=== PATIENT | female | born 1985 | race Caucasian/White ===

== ENCOUNTER 2020-03-06 10:34 | Outpatient (CLI) | payer BC, SELFPAY ==
[2020-03-09 08:20] LABS: SARS-CoV-2 RNA Undetected (Undetected); SARS-CoV-2 Specimen Source Nasopharynx
== END 2020-03-06 10:54 ==
PROVIDERS: Visit Provider Family Medicine
DX: Z20.828 Contact with and (suspected) exposure to other viral communicable diseases (principal)
CPT/HCPCS: U0003

== ENCOUNTER 2020-04-10 08:08 | Outpatient (CLI) | payer BC, SELFPAY ==
[2020-04-13 16:11] LABS: Patient Race White; SARS-CoV-2 RNA Undetected (Undetected); SARS-CoV-2 Specimen Source Nasopharynx
== END 2020-04-10 08:28 ==
PROVIDERS: PCP Student in an Organized Health Care Education/Training Program; Visit Provider Student in an Organized Health Care Education/Training Program
DX: J02.9 Acute pharyngitis, unspecified (principal)
CPT/HCPCS: U0003; 87081

== ENCOUNTER 2020-04-15 08:00 | Outpatient (CLI) | payer BC, SELFPAY ==
[2020-04-19 03:45] LABS: Patient Race White; SARS-CoV-2 RNA Undetected (Undetected); SARS-CoV-2 Specimen Source Nasopharynx
== END 2020-04-15 08:20 ==
PROVIDERS: PCP Student in an Organized Health Care Education/Training Program; Visit Provider Family Medicine
DX: Z11.59 Encounter for screening for other viral diseases (principal)
CPT/HCPCS: U0003

== ENCOUNTER 2020-06-02 14:13 | Outpatient (CLI) | payer BC, SELFPAY ==
--- NOTE | 2020-06-02 13:45 | DI.RAD_ITS ---
EXAM: XR KNEE LT 3V AP,LAT,PAU CLINICAL HISTORY: patella pain. TECHNIQUE: 2D digital imaging was performed. COMPARISON: No exams were available for comparison FINDINGS: BONES: No acute fracture is present. No bony destructive lesion is seen. JOINTS: The knee is normally aligned. No joint effusion is seen. There is mild narrowing of the medi al femoral tibial joint space. There is no significant periarticular spurring. SOFT TISSUE: Normal. IMPRESSION: Mild degenerative changes of the medial femoral tibial joint. DATA REPOSITORY: RADIATION DOSE DELIVERED:
== END 2020-06-02 14:33 ==
PROVIDERS: PCP Student in an Organized Health Care Education/Training Program; Visit Provider Student in an Organized Health Care Education/Training Program
DX: M17.12 Unilateral primary osteoarthritis, left knee (principal)
CPT/HCPCS: 73562

== ENCOUNTER 2020-09-17 18:50 | Outpatient (REF) | payer BC, SELFPAY ==
[2020-09-19 18:01] LABS: COVID-19 RT-PCR UVMMC Result Negative (Negative)
== END 2020-09-17 18:51 | disposition home or self-care (01) ==
LOC: LBN 18:50
PROVIDERS: PCP Student in an Organized Health Care Education/Training Program; Visit Provider Nurse Practitioner
DX: Z20.822 Contact with and (suspected) exposure to COVID-19 (principal); R05 Cough; R06.02 Shortness of breath
CPT/HCPCS: U0003

== ENCOUNTER 2020-12-22 16:40 | Outpatient (CLI) | payer BC, SELFPAY ==
[2020-12-22 16:48] LABS: HCT 40.8 % (36.0-46.0); HGB 13.4 g/dL (11.2-15.7); MCH 29.3 pg (27.0-33.0); MCHC 32.8 % (32.0-36.0); MCV 89.3 fL (80-95); Platelet Count 303 10^3/uL (130-400); RBC 4.57 10^6/uL (3.93-5.22); RDW 11.9 % (11.7-14.6); RDW-SD 38.5 fL; WBC 7.37 10^3/uL (4.4-10.8)
[2020-12-22 17:32] LABS: ALT 24 U/L (14-59); AST 15 U/L (15-37); Albumin 3.8 g/dL (3.4-5.0); Alkaline Phosphatase 70 U/L (46-116); Anion Gap 7.4 mmol/L (3-11); BUN 15 mg/dL (7-18); Bilirubin, Total 0.4 mg/dL (0.2-1.0); CO2 29.6 mmol/L (21.0-32.0); CREATININE 0.6 mg/dL (0.55-1.02); Calcium 8.3 mg/dL (8.5-10.1); Chloride 103 mmol/L (98-107); Ferritin 42 ng/mL (8-252); Glucose 93 mg/dL (74-106); Sodium 140 mmol/L (136-145); Vitamin B12 508 pg/mL (193-986)
== END 2020-12-22 16:41 | disposition home or self-care (01) ==
LOC: LBO 12-23 16:41
PROVIDERS: PCP Student in an Organized Health Care Education/Training Program; Visit Provider Nurse Practitioner
DX: R42 Dizziness and giddiness (principal); R06.02 Shortness of breath; R00.0 Tachycardia, unspecified
CPT/HCPCS: 36415; 80053; 85027; 82607; 82728; 84443

== ENCOUNTER 2020-12-24 09:22 | Outpatient (CLI) | payer BC, SELFPAY ==
--- NOTE | 2020-12-24 09:15 | RT.EKG_ITS ---
APPROVED REPORT Exam: Resting ECG Reason for Exam: tachycardia Patient Location: O HR:75 bpm ECG Measurements Heart Rate 75 AXIS SD 164 P 63 QRSd 87 QRS 23 QT 386 T 39 QTc 430 Conclusion Sinus rhythm...normal P axis, V-rate 60- 99 Normal Electrocardiogram
== END 2020-12-24 09:23 | disposition home or self-care (01) ==
LOC: DI.KIM 09:23
PROVIDERS: PCP Student in an Organized Health Care Education/Training Program; Visit Provider Student in an Organized Health Care Education/Training Program
DX: R06.02 Shortness of breath (principal); R42 Dizziness and giddiness; R00.0 Tachycardia, unspecified
CPT/HCPCS: 93010

== ENCOUNTER 2021-03-01 03:15 | Outpatient (CLI) | payer BC, SELFPAY ==
--- NOTE | 2021-03-16 15:15 | ZIOP_ITS ---
Date of service: 03/16/21 Time of Service: 15:15 14 Day Flooring Sales Manager Referring Provider:: Tory Liu Indications:: Tachycardia Note: This is a 14-day media monitor. Predominant rhythm was sinus. Average heart rate was 76, minimum 144, maximum 179 There were very rare atrial and ventricular ectopic beats. There was one ventricular triplet. There was no supraventricular tachycardia There was no atrial fibrillation, no high-grade AV block, no pauses greater than 3 seconds Multiple patient symptoms were reported, the majority of which corresponded to sinus rhythm and sinus tachycardia without additional concerning dysrhythmia
--- NOTE | 2021-03-29 10:42 | W.ZIOMONITOR ---
Date of service: 03/29/21 Time of Service: 10:43 14 Day Workers Compensation Legal Secretary Referring Provider:: Tory Liu Indications:: Tachycardia Note: This is a corrected report on a 14-day school lunch monitor Predominant rhythm was sinus. Average heart rate was 76. Minimum was 44, maximum 179 There were very rare atrial and ventricular ectopic beats. There was one ventricular triplet. There was no supraventricular tachycardia There was no atrial fibrillation, no high-grade AV block, no pauses greater than 3 seconds Multiple patient symptoms were reported. The majority of these corresponded to sinus rhythm, occasionally sinus tachycardia but no corresponding dysrhythmia
== END 2021-03-01 03:16 | disposition home or self-care (01) ==
LOC: RT 03:15
PROVIDERS: PCP Student in an Organized Health Care Education/Training Program; Visit Provider Student in an Organized Health Care Education/Training Program
DX: R00.0 Tachycardia, unspecified (principal); R06.02 Shortness of breath; R42 Dizziness and giddiness; R00.2 Palpitations
CPT/HCPCS: 93246

== ENCOUNTER 2021-04-08 04:09 | Outpatient (CLI) | payer BC, SELFPAY ==
[2021-04-08] MEDS: Albuterol HFA 18 GM 200 PUFF INH IH (16:42)
[2021-04-08] MEDS: Inhaler, Assist Device 1 EACH MC (16:42)
--- NOTE | 2021-04-13 15:39 | W.PFT ---
Date of service: 04/08/21 Time of Service: 15:01 Pulmonary Function Test Result Requesting Provider Tory Liu Indications: Reactive Airways Disease Interpretation Spirometry: There is no airflow limitation. There is no significant bronchodilator response. Her volume flow loops appear normal. Lung Volumes: Lung volumes are normal. Diffusion Capacity: The diffusion is normal. Airway Pressure: Airways resistance is normal. Impression Normal pulmonary function test. Clinical Correlation therefore is recommended.
--- NOTE | 2021-05-21 06:31 | W.PFT ---
Date of service: 05/04/21 Time of Service: 15:02 Pulmonary Function Test Result Requesting Provider Lv Indications: Reactive airways disease Interpretation Spirometry: There is no airflow limitation. There is a significant decline in FEV1 with administration of methacholine (24%) Impression Positive methacholine test with normal baseline spirometry Note: Compared to 04/08/21, the FEV1 and FVC are essentially unchanged Clinical Correlation therefore is recommended.
== END 2021-04-08 04:10 | disposition home or self-care (01) ==
LOC: RT 04:10
PROVIDERS: PCP Student in an Organized Health Care Education/Training Program; Visit Provider Student in an Organized Health Care Education/Training Program
DX: J45.909 Unspecified asthma, uncomplicated (principal)
CPT/HCPCS: 94060; 94726; 94729

== ENCOUNTER 2021-05-04 01:30 | Outpatient (CLI) | payer BC, SELFPAY ==
[2021-05-04] MEDS: Methacholine 100 MG VIAL IH (17:20)
[2021-05-04] MEDS: Albuterol HFA 18 GM 200 PUFF INH IH (17:20)
[2021-05-04] MEDS: Inhaler, Assist Device 1 EACH MC (17:21)
== END 2021-05-04 01:31 | disposition home or self-care (01) ==
LOC: RT 01:30
PROVIDERS: PCP Student in an Organized Health Care Education/Training Program; Visit Provider Student in an Organized Health Care Education/Training Program
DX: J45.909 Unspecified asthma, uncomplicated (principal); R94.2 Abnormal results of pulmonary function studies
CPT/HCPCS: 94060; 95070; J7674

== ENCOUNTER 2021-05-06 01:15 | Outpatient (CLI) | payer BC, SELFPAY ==
--- NOTE | 2021-05-06 09:15 | DI.RAD_ITS ---
Exam(s) XR CHEST 2V PA LATERAL EXAM: XR CHEST 2V PA LATERAL CLINICAL HISTORY: cough, dyspnea,J45.909, REACTIVE AIRWAY DISEASE. TECHNIQUE: 2D digital imaging was performed. COMPARISON: No exams were available for comparison FINDINGS: Heart size is normal. The mediastinum is not widened. Lungs are clear. No infiltrates nor pleural effusions. IMPRESSION: No acute pulmonary findings. DATA REPOSITORY: RADIATION DOSE DELIVERED:
== END 2021-05-06 01:35 ==
PROVIDERS: PCP Student in an Organized Health Care Education/Training Program; Visit Provider Student in an Organized Health Care Education/Training Program
DX: J45.909 Unspecified asthma, uncomplicated (principal); R05.8 Other specified cough; R06.00 Dyspnea, unspecified
CPT/HCPCS: 71046

== ENCOUNTER 2021-05-20 09:29 | Outpatient (CLI) | payer BC, SELFPAY | END 2021-05-20 09:30 | disposition home or self-care (01) | LOC: DI.CARD 09:30 | PROVIDERS: PCP Student in an Organized Health Care Education/Training Program; Visit Provider Internal Medicine Cardiovascular Disease | DX: R69 Illness, unspecified (principal) ==

== ENCOUNTER 2021-05-21 03:51 | Outpatient (CLI) | payer BC, SELFPAY ==
[2021-05-24 09:24] LABS: Vitamin D 25 Total 26.6 ng/mL (30-100)
== END 2021-05-21 03:52 | disposition home or self-care (01) ==
LOC: LBO 03:51
PROVIDERS: PCP Student in an Organized Health Care Education/Training Program; Visit Provider Student in an Organized Health Care Education/Training Program
DX: E83.51 Hypocalcemia (principal); R00.0 Tachycardia, unspecified
CPT/HCPCS: 36415; 82306

== ENCOUNTER 2021-06-25 08:40 | Outpatient (CLI) | payer BC, SELFPAY ==
--- NOTE | 2021-06-25 08:30 | RT.EKG_ITS ---
APPROVED REPORT Exam: Resting ECG Reason for Exam: tachycardia Patient Location: O HR:60 bpm ECG Measurements Heart Rate 60 AXIS [place] 134 P 34 QRSd 94 QRS 4 QT 409 T 22 QTc 409 Conclusion Sinus rhythm...normal P axis, V-rate 50- 99 Low voltage, precordial leads...precordial leads <1.0mV Otherwise normal
== END 2021-06-25 08:41 | disposition home or self-care (01) ==
LOC: DI.CARD 08:41
PROVIDERS: PCP Student in an Organized Health Care Education/Training Program; Visit Provider Internal Medicine Cardiovascular Disease
DX: R00.0 Tachycardia, unspecified (principal)
CPT/HCPCS: 93010

== ENCOUNTER 2021-07-21 01:39 | Outpatient (CLI) | payer BC, SELFPAY ==
[2021-07-21 12:58] VITALS: BP 130/77; PULSE 76; RESP 16; TEMP 36.4; O2SAT 97
[2021-07-21] MEDS: Normal Saline 250 ML 30 ML IV (13:01)
[2021-07-21] MEDS: Normal Saline Flush 10 ML SYR IVP (13:05)
[2021-07-21 13:10] VITALS: BP 111/73; PULSE 70; RESP 18; TEMP 36.6; O2SAT 97
[2021-07-21 14:16] VITALS: BP 125/80; PULSE 68; RESP 16; TEMP 36.8; O2SAT 96
== END 2021-07-21 01:40 | disposition home or self-care (01) ==
LOC: INF 01:39
PROVIDERS: PCP Student in an Organized Health Care Education/Training Program; Visit Provider Family Medicine
DX: U07.1 COVID-19 (principal); R53.81 Other malaise; R09.02 Hypoxemia; R06.82 Tachypnea, not elsewhere classified; R41.89 Other symptoms and signs involving cognitive functions and awareness; R23.0 Cyanosis
CPT/HCPCS: 96365; Q0047

== ENCOUNTER → 2021-11-03 02:22 | Outpatient (CLI) | payer BC, SELFPAY ==
--- NOTE | 2021-11-03 14:56 | ST.MBS_ITS ---
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 PMHx significant for chronic cough, history of reactive airways disease, unspecified post-COVID19 condition, POTS, tachycardia, near syncope / vasovagal syncope, SOB, lightheadedness, post concussion syndrome, insomnia, anxiety, depression, and reported JAYNE, pna, bronchitis ~10 years ago. Recently diagnosed with asthma by Pulmonology approx 3 months ago, and changed her to Advair HFA (both steroid and LABA is a different formulation); Methacholine test also showed inspiratory loop blunting. Reports tilt table testing scheduled for end september (tentatively, still unconfirmed). Patient also has environmental pollutant(s) history, ie spent 2 years in a polluted city in [place] (about 9 years ago) Imaging / Testing: Chest XRay 04/2021 IMPRESSION: No acute pulmonary findings. Pulmonary Function Tests: 04/2021, 03/2021 Diagnoses Asthma? J45.909 Vocal cord dysfunction? J38.3 SUBJECTIVE: Patient reports feeling like foods get stuck and kind of block things; this morning was difficult swallowing pills. It took a few times to get it to go down, or even get started. Mostly this is with pills, but sometimes things catch in the back. IMPRESSIONS: Swallow safety is preserved; swallow efficiency is preserved. Overall oropharyngeal swallow function is WFL; suspect dysphagia report due to possible deficits with swallow-breath coordination (not seen on study this date) and possible muscle tension dysphagia (MTDg). Patient appears to be at low risk for potential aspiration PNA and/or pulmonary compromise and low for malnutrition, low for dehydration. Diet modification is not indicated; non-oral nutrition is not indicated. Swallow prognosis is excellent given age (+), outcomes from VFSE/MBSS this date (+) and pending patient/caregiver training in risk management as outlined, including use of trialed compensatory strategies. Patient appears to be a good candidate for continued CHIPS SCREEN TENDER treatment to address swallow-breath coordination, possible muscle tension dysphagia (MTDg). Specialist referrals: N/A Ancillary tests: N/A Diet texture recommendation: IDDSI Level [x] 7-Regular Solids [x] 0-Thin Liquids Please see further details at [email or web address] Diet texture modification is per patient's preference; please adjust diet textures at patient's discretion & collaboration with care team. Risk Management: [x] Behavioral reflux precautions, including upright position during + 90 mins after meals. [x] Alternate solids/liquids as able [x] breath and muscle tension awareness during po intake Control risk factors for aspiration pneumonia via (a) thorough oral hygiene & (b) maintaining physical mobility as tolerated PLAN: Therapy: Recommend subsequent outpatient session with CHIPS SCREEN TENDER to review results of today's exam and develop treatment plan as appropriate. Goal: TBD pending patient/caregiver interview Follow-up exam: N/A Thank you for allowing me to take part in this patient's care. Please feel free to contact me with any questions/concerns. Darcy Jackman MA CCC-CHIPS SCREEN TENDER Speech Language Pathologist [phone] OBJECTIVE: Videofluoroscopic Swallow Evaluation (VFSE/MBSS) was conducted in the lateral and [id number] projections by Speech-Language Pathologist, in collaboration with Radiologist, to evaluate oropharyngeal swallow function. Anatomic view under fluoroscopy: [x] WFL PO Barium Contrast Trials Oral barium water-soluble contrast was administered as follows: IDDSI Level 0 Varibar thin liquid (40% w/v) IDDSI Level 2 Varibar nectar thick/mildly thick liquid (40% w/v) IDDSI Level 3 Varibar thin honey/liquidised/moderately-thick (40% w/v) IDDSI Level 4 Varibar pudding/pureed/extremely thick (40% w/v) IDDSI Level 7 Regular Solid: 1/2 carlee cracker coated in 3 mL Varibar pudding; 13 mm barium tablet PHYSIOLOGIC FINDINGS (1) Oral Impairment 1 Lip Closure [x] 0-No labial escape 2 Tongue Control [x] 0- Cohesive bolus between tongue to palatal seal 3 Bolus Preparation/Mastication [x] 0- Timely and efficient chewing/mashing 4 Bolus Transport/Lingual Motion [x] 0- Brisk tongue motion 5 Oral residue [x] 0- Complete oral clearance 6 Initiation of pharyngeal swallow [x] 1- Bolus head in valleculae Pharyngeal Impairment 7 Velar Elevation [x] 0- No bolus between soft palate and pharyngeal wall 8 Laryngeal Elevation [x] 0- Complete superior movement of thyroid cartilage with complete approximation of arytenoids to epiglottic petiole 9 Anterior Hyoid Excursion [x] 0- Complete anterior movement 10 Epiglottic Movement [x] 0- Complete inversion 11 Laryngeal Vestibule Closure [x] 0- Complete; no air/contrast in laryngeal vestibule Penetration [x] not observed Aspiration [x] not observed PAS / Overall 8-Point Penetration-Aspiration Scale (2) [x] 1 - No material enters the airway Clinical Indicator(s) of Prandial/Postprandial Aspiration [x] N/A 12 Pharyngeal Stripping Wave [x] 0- Present; complete 13 Pharyngeal Contraction [x] 0- Complete 14 PES/UES Opening [x] 0- Complete distension and complete duration; no obstruction of flow 15 Tongue Base Retraction [x] 0- No contrast between tongue base and posterior pharyngeal wall] 16 Pharyngeal residue [x] 0-Complete pharyngeal clearance Location [facility] Pharyngeal Residue Severity Rating Scale(3) [x] Valleculae I None 0% No residue II Trace 1-5% Trace coating III Mild 5-25% Epiglottic ligament visible IV Moderate 25-50% Epiglottic ligament covered V Severe >50% Filled to epiglottic rim Esophageal Impairment 17 Esophageal Clearance in Upright Position [x] 0-Complete clearance; esophageal coating Notes This study was performed for interpretation only of the oropharyngeal and pharyngoesophageal domains of swallowing, and is not intended to diagnose any other radiologic abnormalities or substitute for a formal esophagram study. KENYETTA: (4) Severity [x] LEVEL 6 - Full PO: normal diet - Within functional limits Trialed Compensatory Strategies & Outcome: Maneuvers Successful/Unsuccessful (+/-) Postures Successful/Unsuccessful (+/-) [] 3 second Preparatory Set [] Chin Tuck Posture [] Cough [] Posterior Head tilt Reflexive Cued [] Throat Clear [] Head Tilt to Reflexive Left Cued Right [] Saliva swallow [] Head Turn/Rotation to [] Supraglottic Swallow Left [] Super-supraglottic Swallow Right Bolus Modifications Successful/Unsuccessful (+/-) [] Delivery/Alternating Consistencies Follow with Liquid Wash Follow with Solid Bolus [] Delivery/Via Straw [] Reduced Volume [] Reduced Rate of Intake [] Increased Viscosity [] Other: Coding CPT Codes MOTION FLUOROSCOPY/SWALLOW - [id number] ([id number]) 1: Jean Carlos Rodriguez al. ?MBS measurement tool for swallow impairment--MBSImp: establishing a standard.? Dysphagia vol. 23,4 (2008): 392-405. doi:10.1007/n65247-425-5636-7 2: (Xenia et al, 1996) 3: (Ronny et al, 2015) 4: The Dysphagia Outcome and Severity Scale is a 7-point scale developed to systematically rate the functional severity of dysphagia based on objective assessment and make recommendations for diet level, independence level, and type of nutrition.
[2021-11-03] MEDS: Barium Sulfate 40% W/V 1500 CPS 250 ML BTL 70 ML PO ×2 (14:58→15:00)
[2021-11-03] MEDS: Barium Sulfate Oral Paste 40% W/V 230 ML TUBE 13 ML PO (14:59)
[2021-11-03] MEDS: Barium Sulfate 81% w/w for Oral Suspension 148 GM BTL 70 GM PO (14:59)
[2021-11-03] MEDS: Barium Sulfate 40% W/V 240 ML BTL 70 ML PO (15:01)
--- NOTE | 2021-11-03 15:30 | DI.RAD_ITS ---
Exam(s) RF MODIFIED SPEECH BA SWALLOW EXAM: RF MODIFIED SPEECH BA SWALLOW CLINICAL HISTORY: dysphagia,r13.10 TECHNIQUE: 2D and realtime digital imaging was performed. CONTRAST MATERIAL: Multiple consistencies of barium. COMPARISON: No exams were available for comparison FINDINGS: There is no evidence of aspiration or laryngeal penetration with any consistency. No delay in oral t ransit. There is no significant pooling or residue in the vallecular or piriform sinuses. Barium ta blet passed into the stomach without delay. Esophageal peristalsis is normal. IMPRESSION: Normal modified barium swallow. Please see detailed speech pathology report. Fluoro time 1 minutes 50 seconds RADIATION DOSE DELIVERED: li Avilez=11.5 mGy
[2021-11-03] MEDS: Barium Sulfate 700 MG TAB PO (15:35)
== END ==
PROVIDERS: PCP Student in an Organized Health Care Education/Training Program; Visit Provider Speech-Language Pathologist
DX: R13.10 Dysphagia, unspecified (principal)
CPT/HCPCS: 92526; 92611; 74221

== ENCOUNTER → 2021-11-30 01:56 | Outpatient (CLI) | payer BC, SELFPAY ==
--- NOTE | 2021-11-30 07:33 | DI.US_ITS ---
APPROVED REPORT EXAM: Comprehensive 2D, Doppler, and color-flow Echocardiogram Patient Location: Out-Patient E Commerce Manager: Ida Lopez RDCS (AE) Indications: Lightheaded, Palpitations Other Information Study Quality: Adequate Conclusion Normal left ventricular wall thickness and chamber size. Estimated ejection fraction is 55 to 60%. Wall motion is normal Normal right ventricular size and systolic function Both atria are normal in size There is no structural or hemodynamically significant valvular disease Normal estimated right ventricular systolic pressure, 24 mmHg Wall motion Left Ventricle The left ventricle is normal size. The left ventricular systolic function is normal. The left ventric ular ejection fraction is within the normal range. There is normal left ventricular wall thickness. T here is normal LV segmental wall motion. There is no ventricular septal defect visualized. LVEF is 58 %. Right Ventricle The right ventricle is normal size. The right ventricular systolic function is normal. The RVSP is 22 .4 mmHg. Atria The left atrium size is normal. The right atrium size is normal. The interatrial septum is intact wit h no evidence for an atrial septal defect. Aortic Valve The aortic valve is normal in structure. Aortic valve is trileaflet. There is no aortic valvular sten osis. No aortic regurgitation is present. Mitral Valve The mitral valve is normal in structure. No evidence of mitral valve stenosis. Trace to mild mitral r egurgitation. Tricuspid Valve The tricuspid valve is normal in structure. There is no tricuspid valve stenosis. Trace tricuspid reg urgitation. Pulmonic Valve The pulmonary valve is normal in structure. There is no pulmonic valvular stenosis. There is no pulmo ramona valvular regurgitation. Great Vessels The aortic root is normal in size. The ascending aorta is normal in size. Aortic arch is normal in ca liber. IVC is normal in size and collapses >50% with inspiration. Pericardium There is no pericardial effusion. 2D Dimensions IVSD d PLAX 0.61 cm F: 0.6-1.0 LV Vol A2C d MOD 103.9 mL LVPW d PLAX 0.65 cm F: 0.6 - 1.0 LV Vol A4C d MOD 135.8 mL LVID d PLAX 5.16 cm F: 3.8 - 5.2 LA vol/ BSA A2C s A-L 26.1 mL/m2 LVDs 3.60 cm F: 2.2 - 3.5 LA vol/ BSA A4C s A-L 22.1 mL/m2 Ao Root d 2.88 cm F: 2.7 - 3.3 LA Vol/ BSA Biplane s A-L 24.2 mL/m2 RA Area A4C 14.89 cm2 LA Area A4C s MOD 18.98 cm2 RA Vol/ BSA A4C s A-L 16.6 mL/m2 LA Area A2C s MOD 20.51 cm2 Ao Asc Diam d 3.07 cm F: 2.3 - 3.1 LV EF A4C MOD 57.7 % LV EF Teichholz 57.1 % LV EF A2C MOD 58.2 % LVEF (Mustafa's) 57.21 % F: 54 - 74 LV EF Biplane MOD 57.2 % LV Volume 85.82 mL F: 46 - 106 SV 69.12 mL LV Volume Index 36.21 mL/m2 F: 29 - 61 SV Index 29.08 mL/m2 LV Vol Biplane MOD 120.8 mL FS 30.15 % M-Mode TAPSE 2.75 cm (M/F) >1.7 LV Diastology MV E' medial 0.144 (>0.07 m/s) E/A Ratio 1.9 LV E/e MED 6.55 (<14) MV E Vmax 0.95 (0.4-1.3 m/s) MV E' lateral 0.127 (>0.1 m/s) MV A Vmax 0.50 (0.4-1.3 m/s) LV E/e LAT 7.45 (<14) MV E/A Ratio 1.78 MV E/E' medial 6.58 MV E/E' lateral 7.46 Aortic Valve LVOT Area 3.77 cm2 AoV Area Vmax 3.10 cm2 LVOT Vmax 1.12 m/s AoV Area/ BSA (Vmax) 1.31 cm2/m2 LVOT Mean Nasir. 0.81 m/s JESSE Mean Nasir. 3.16 cm2 LVOT Peak Grad 5.0 mmHg JESSE Mean Nasir. Index 1.33 cm2/m2 LVOT Mean Grad 2.9 mmHg LVOT VTI 0.257 m LVOT Diam s 2.15 cm AoV Vmax 1.36 m/s Velocity Ratio 0.82 AoV Mean Nasir. 0.96 m/s AoV Peak Grad 7.4 mmHg LVOT SV 97.09 mL AoV Mean Grad 4.1 mmHg AoV VTI 0.331 m AoV Area VTI 2.93 cm2 AoV Area/ BSA (VTI) 1.23 cm/m2 Mitral Valve MV DT 354 (160-240 msec) MV PHT 103 msec MV Area PHT 2.14 cm2 MV VTI 0.400 m MV Area VTI 2.42 (4.0-6.0 cm2) Pulmonary Valve PV Vmax 1.04 (0.5-1.5 m/s) RVOT Peak Gr. 2.46 mmHg PV Peak Grad 4.3 mmHg RVOT Mean Gr. 1.15 mmHg PV Mean Grad 2.2 mmHg RVOT VTI 0.183 m PV VTI 0.248 m RVOT Vmax 0.78 m/s Tricuspid Valve TR Peak Grad 19.3 mmHg TR Vmax 2.20 m/s RA Pressure 3.00 mmHg RVSP (TR) 22.4 mmHg
== END ==
PROVIDERS: PCP Student in an Organized Health Care Education/Training Program; Visit Provider Nurse Practitioner Acute Care
DX: R42 Dizziness and giddiness (principal); R00.2 Palpitations
CPT/HCPCS: 93306

== ENCOUNTER 2022-05-06 09:38 | Day surgery (SDC) | payer BC, SELFPAY ==
--- NOTE | 2022-05-06 05:49 | W.PM.HP.N ---
Date of service: 05/06/22 Time of Service: 11:39 Assessment and Plan Assessment and plan (1) Reflux involving intestinal tract: Status: Acute Assessment and plan: diagnostic EGD today History of Present Illness History of Present Illness Chief Complaint: dyspepsia Narrative: She is 36 years old and has been experiencing symptoms for several years.? Mostly, she has a sour brash taste and discomfort through her mediastinum up into her lower neck that seems to have some temporal relationship with her meals, especially if she is in the recumbent position after dining.? She has been treated with omeprazole and has noticed some improvement of her symptoms, but she has never been pain-free.? Furthermore, if she holds that medication (or misses any doses) she certainly feels an exacerbation of her symptoms.? She is also recently had some difficulty with vocal cord dysfunction.? She is undergone a barium swallow that shows no evidence of aspiration, but she does complain of some hoarseness, congestion, and occasional sinusitis symptoms that seem to be worse in the morning time.? In that regards, she has some concern that gastroesophageal reflux during her sleep is really the cause of the symptoms. PFSH All Active Problems Depression (Chronic) Anxiety (Chronic) Insomnia (Acute) Motion sickness (Acute) Exposure to TB (Acute) Post concussion syndrome (Acute) Loss of peripheral visual field (Acute) Recurrent dislocation of patella (Acute) Chondromalacia of left patellofemoral joint (Acute) SOB (shortness of breath) on exertion (Acute) Increased pulse rate (Acute) Near syncope (Acute) Tachycardia (Acute) Hypovitaminosis D (Acute) Asthma (Chronic) Per Pulm 10/2021 (Dr. Nicole). Singulair started. Vocal cord dysfunction (Acute) Per Pulm, 10/2021. Sp/Swallow [ ] Post covid-19 condition, unspecified (Acute) Hearing difficulty (Acute) Dysphagia (Acute) JAYNE (obstructive sleep apnea) (Chronic) CPAP, needing new settings and mouth-piece. Reflux involving intestinal tract (Acute) Regurgitation of food (Acute) Diaphoresis (Chronic) Is this associated with POTS .. POTS (postural orthostatic tachycardia syndrome) (Acute) Initially discussed, 04/2021 .. with goal of testing/specialist Dx for possible Tx. Vasovagal syncopes (Acute) per [facility] EP Cardiology unit, with POTS testing in process.. 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, [employer] Sexually active: No Do you think of yourself as: Decline to Provide Current gender identity: female Do you feel safe at home: Yes Do you feel safe in your relationship?: Yes Meds Allergies and Home Medications Allergies Allergy/AdvReac Type Severity Reaction Status Date / Time cefaclor [From Counts [facility]] Allergy Severe Hives Verified 05/06/22 09:53 Home Medications Medication Instructions Recorded Confirmed Type multivitamin 1 tab PO DAILY 09/17/20 05/06/22 History cholecalciferol (vitamin D3) 25 25 mcg PO DAILY #90 caps 05/25/21 05/06/22 Rx mcg (1,000 unit) capsule budesonide-formoterol HFA 160 2 puff inhalation BID #10.2 grams 06/27/21 05/06/22 Rx mcg-4.5 mcg/actuation aerosol inhaler (Symbicort) escitalopram oxalate 20 mg tablet 40 mg PO .COMPLEX #180 tabs 07/27/21 05/06/22 Rx propranolol 20 mg tablet 20 mg PO BID PRN tachycardia or 07/27/21 05/06/22 Rx anxiety episode #60 tabs montelukast 10 mg tablet 10 mg PO DAILY #30 tabs 10/20/21 05/06/22 Rx (Singulair) fluticasone propionate 50 2 spray intranasal DAILY 12/14/21 05/06/22 History mcg/actuation nasal spray,suspension levalbuterol tartrate 45 2 inh inhalation Q6H PRN 05/06/22 05/06/22 History mcg/actuation aerosol inhaler (Xopenex HFA) omeprazole 20 mg capsule,delayed 20 mg PO DAILY 05/06/22 05/06/22 History release Exam Const General: cooperative, healthy appearing and comfortable Orientation: awake and oriented x3 Eyes General: appearance normal, both eyes and all related structures Conjunctivae: conjunctivae normal Sclera: sclerae normal Resp Effort & Inspection: normal respiratory effort and able to speak in complete sentences Auscultation: clear to auscultation bilaterally Cardio Jugular venous pressure: no JVD Rate: regular rate Rhythm: regular rhythm Heart Sounds: S1 normal and S2 normal GI Inspection: non-distended Palpation: soft, no guarding, no hernias and nontender Auscultation: normal bowel sounds Skin General skin exam: normal turgor Neuro General: patient alert, patient awake and patient oriented x3 Cognition: normal cognition Extrem Right lower extremity: no edema Left lower extremity: no edema
--- NOTE | 2022-05-06 05:50 | W.PM.DSUDISC ---
Date of service: 05/06/22 Time of Service: 12:43 Discharge Plan Disposition Patient Disposition: HOME Condition: Good Discharge Details Reason For Visit: EGD Attending Provider: Andrea Delgadillo Primary Care Provider: Tory Liu Home Meds and New Rx's Prescriptions: Continued multivitamin Tablet 1 tab PO DAILY propranolol 20 mg tablet 20 mg PO BID PRN (Reason: tachycardia or anxiety episode) Qty: 60 2RF Rx Instructions: Continue @ 20mg 2/day .. escitalopram oxalate 20 mg tablet 40 mg PO .COMPLEX MDD 40 Qty: 180 3RF Rx Instructions: 40mg montelukast [Singulair] 10 mg tablet 10 mg PO DAILY Qty: 30 6RF fluticasone propionate 50 mcg/actuation spray,suspension 2 spray intranasal DAILY Rx Instructions: administer into each nostril cholecalciferol (vitamin D3) 25 mcg (1,000 unit) capsule 25 mcg PO DAILY Qty: 90 1RF Rx Instructions: Continue daily after 8 weeks of high-dose Rx. budesonide-formoterol [Symbicort] 160-4.5 mcg/actuation HFA aerosol inhaler 2 puff inhalation BID Qty: 10.2 8RF No Action omeprazole 20 mg capsule,delayed release(DR/EC) 20 mg PO DAILY Rx Instructions: Trial, start with daily use. levalbuterol tartrate [Xopenex HFA] 45 mcg/actuation HFA aerosol inhaler 2 inh inhalation Q6H PRN Rx Instructions: Trial to help decrease tachycardia Discharge Instructions Instructions: Esophagitis (DC) Additional Instructions: 1. If tolerated, consume a soft, low fiber diet for 1-2 days. [address] Do not drive, drink alcohol, operate machinery, make critical decisions, or do activities that require coordination or balance for 24 hours. 3. You may experience a sore throat for 24 to 48 hours. You may use throat lozenges or gargle with warm salt water to relieve the discomfort. 4. Because air was put into your stomach during the procedure, you may experience some belching. 5. Go directly to the emergency room if you notice any of the following: Develop chills (warm to touch), or if you have a thermometer and your temperature is above 101 Difficulty breathing or difficultly swallowing Persistent vomiting Severe abdominal pain, other than gas cramps Severe chest pain Black, tarry stools Any bleeding ? exceeding one tablespoon 6. Call your physician if the site where your intravenous was started becomes red, swollen, painful, and warm to touch. 7. Your physician has reviewed your pre-procedure medications. Please continue to take those medications as previously ordered. You will be given specific information/education regarding any changes to your medications before leaving. Activity:: Activity as Tolerated Diet:: As Tolerated Discharge Orders Discharge Orders: Discharge Order (Routine); Ordered 05/06/22 Ordered By: Andrea Delgadillo DS: Diagnosis Discharge Diagnosis (1) Reflux involving intestinal tract: Status: Acute Asessment and Plan: Continue with omeprazole. I will contact you with biopsy results
--- NOTE | 2022-05-06 05:51 | W.PM.ENDDOP ---
Date of service: 05/06/22 Time of Service: 12:45 Endoscopy Report DATE OF PROCEDURE: 05/06/22 PRE-OP DIAGNOSIS: reflux POST-OP DIAGNOSIS: same PROCEDURE: EGD SURGEON: Andrea Delgadillo ANESTHESIA TYPE: General:No Airway ESTIMATED BLOOD LOSS: 20 PATHOLOGY: other (Gastric antrum x2, gastric body x2) COMPLICATIONS: None DISPOSITION: same day INDICATIONS: Evelyne is a 36-year-old woman with chronic gastroesophageal reflux disease. She has had some mild improvement in her symptoms with the addition of omeprazole. She continues to have some cough, occasional shortness of breath, and some vocal cord dysfunction that are thought to be secondary to her reflux esophagitis. PROCEDURE START TIME: 12:30 PROCEDURE END TIME: 12:35 FINDINGS: Very mild reflux esophagitis PROCEDURE DESCRIPTION: After the initiation of monitored anesthetic care, and with the assistance of a bite block, I advanced a standard gastroscope through the mouth past the hypopharynx and into the esophagus.? Under the direct vision of the scope, I advanced down the esophagus into the stomach.? Once I entered the stomach, I performed a brief inspection, followed by retroflexion towards the gastric cardia.? This appeared normal.? After that, I gently advanced the scope around the incisura angularis and examined the pylorus.? This also appeared normal.? Next, I advanced the scope through the pylorus into the duodenum.? The mucosa was pink and healthy appearing.? There were no abnormalities.? I was able to visualize bile draining into the duodenum through the ampulla Vater. ?Next, I began retracting the endoscope.? I pulled the scope back into the gastric antrum, and perform some random biopsies. Next, I inspected the gastric body. This also appeared normal, but I did do some random biopsies.? I then gently desufflated some of the stomach, and withdrew the endoscope into the distal esophagus. The Z-line was normal-appearing at the gastroesophageal junction near 40 cm from the incisors. There was very mild inflammation along the gastric border, but the distal esophagus largely appeared normal. I did not see any signs of Monsalve's esophagus. ?Finally, I withdrew the scope along the length of the esophagus taking great care to examine the entirety of the mucosa.? I did not appreciate any abnormalities. I doubt that reflux esophagitis is contributing much to her vocal cord dysfunction.
[2022-05-06 10:04] VITALS: BP 123/80; PULSE 66; RESP 17; TEMP 36.6; O2SAT 96
[2022-05-06] MEDS: Lactated Ringers 1,000 ML 80 ML IV (10:25)
--- NOTE | 2022-05-06 12:07 | W.ANESPRE ---
General Info Date of Service Date Performed: 05/06/22 Height: 5 ft 11 in Weight: 123.1 kg Body Mass Index (BMI): 37.8 Surgical Procedure: Operation Date: 05/06/22 10:05 Proposed Procedure Side Surgeon p Gastroscopy Andrea Delgadillo MD Meds Allergies and Home Medications Allergies Allergy/AdvReac Type Severity Reaction Status Date / Time cefaclor [From [facility]] Allergy Severe Hives Verified 05/06/22 09:53 Home Medication Medication Instructions Recorded multivitamin 1 tab PO DAILY 09/17/20 cholecalciferol (vitamin D3) 25 25 mcg PO DAILY #90 caps 05/25/21 mcg (1,000 unit) capsule budesonide-formoterol HFA 160 2 puff inhalation BID #10.2 grams 06/27/21 mcg-4.5 mcg/actuation aerosol inhaler (Symbicort) escitalopram oxalate 20 mg tablet 40 mg PO .COMPLEX #180 tabs 07/27/21 propranolol 20 mg tablet 20 mg PO BID PRN tachycardia or 07/27/21 anxiety episode #60 tabs montelukast 10 mg tablet 10 mg PO DAILY #30 tabs 10/20/21 (Singulair) fluticasone propionate 50 2 spray intranasal DAILY 12/14/21 mcg/actuation nasal spray,suspension levalbuterol tartrate 45 2 inh inhalation Q6H PRN 05/06/22 mcg/actuation aerosol inhaler (Xopenex HFA) omeprazole 20 mg capsule,delayed 20 mg PO DAILY 05/06/22 release Current Visit Medications: Current Medications Generic Name Dose Route Start Last Admin Trade Name Freq PRN Reason Stop Dose Admin Hyoscyamine Sulfate 0.125 mg 05/06/22 05:53 Hyoscyamine 0.125 Mg Sl/Oral/Chew SL DIRECTED PRN Ringer's Solution 1,000 mls @ 80 mls/hr 05/06/22 06:00 05/06/22 10:25 IV 05/06/22 16:00 80 mls/hr INFUSION VINCENT Administration IV Miscellaneous Supplies 1 each 05/06/22 06:00 Iv Access IV 05/06/22 16:00 DIRECTED VINCENT Ondansetron HCl 4 mg 05/06/22 05:53 Ondansetron 4 Mg/2 Ml Vial IVP Q4H PRN PRN Nausea / Vomiting Sodium Chloride 0 ml 05/06/22 06:00 Normal Saline Flush 10 Ml Syr IV 05/06/22 16:00 PRN PRN Sodium Chloride 0 ml 05/06/22 06:00 Normal Saline 10 Ml Vial IJ 05/06/22 16:00 DIRECTED PRN Sterile Water 0 ml 05/06/22 06:00 Water,Injection,Sterile 10 Ml Vial IJ 05/06/22 16:00 DIRECTED PRN PFSH Active Problems Active Problems: Problem Status Onset Code Depression F32.9 Anxiety F41.9 Insomnia G47.00 Motion sickness T75.3XXA Exposure to TB Z20.1 Post concussion syndrome F07.81 Loss of peripheral visual field H53.459 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 SOB (shortness of breath) on exertion R06.02 Increased pulse rate R00.0 Near syncope R55 Tachycardia R00.0 Hypovitaminosis D E55.9 Asthma J45.909 Vocal cord dysfunction J38.3 Post covid-19 condition, unspecified U09.9 Hearing difficulty H91.90 Dysphagia R13.10 JAYNE (obstructive sleep apnea) G47.33 Reflux involving intestinal tract K21.9 Regurgitation of food R11.10 Diaphoresis R61 POTS (postural orthostatic tachycardia syndrome) I49.8 Vasovagal syncopes R55 Medical History Medical History Comments:: left shoulder sore, swollen, rash from covid vaccine week ago Surgical History Surgical History History of dental surgery Tobacco Smoking/Tobacco Use Status: Never Alcohol Alcohol Intake: current Alcohol intake frequency: a few times a month Substance Use Substance use: Never Substance use type: does not use Vital Signs and Lab Results Vital Signs Most Recent Vital Signs in EMR: Most Recent Vital Signs Temp Pulse Resp BP Pulse Ox 36.6 C 66 17 123/80 96 05/06/22 10:04 05/06/22 10:04 05/06/22 10:04 05/06/22 10:04 05/06/22 10:04 Point of Care Results Point of Care Results: POC- Test(urine) Negative 05/06/22 10:36 Lab Results Blood Type / Crossmatch: No Data to Display Complete Blood Count: No Data to Display Complete Metabolic Panel: No Data to Display Liver Function Panel: No Data to Display Coagulation Panel: No Data to Display Cardiac Panel: No Data to Display Arterial Blood Gas: No Data to Display Venous Blood Gas: No Data to Display Pancreas Panel: No Data to Display Thyroid Panel: No Data to Display Infectious Disease: No Data to Display Blood Cultures: No Data to Display Toxicology Panel: No Data to Display Panel: No Data to Display Imaging and Studies Imaging and Studies Study information below may be from another EMR and interpreted by another provider. Please see original notes in EMR for more complete details. EKG Summary: EKG PATIENT NAME: Ruby Hinkle #: [id number] ORDERING PROVIDER: Savanah Hsu M.D. PRIMARY CARE PROVIDER:TORY LIU DO DATE/TIME OF SERVICE: 06/25/21 1305 : 1985PERFORMING LOCATION: .CARD APPROVED REPORT Exam: Resting ECG Reason for Exam: tachycardia Patient Location: O HR:60 bpm ECG Measurements Heart Rate 60 AXIS [place] 134 P 34 QRSd 94 QRS 4 QT 409 T22 QTc 409 Conclusion Sinus rhythm...normal P axis, V-rate 50- 99 Low voltage, precordial leads...precordial leads <1.0mV Otherwise normal Echocardiogram Summary: Patient Name: Ruby Hinkle #: [id number]: Ordering Provider: Noah Gonzales #: [id number]: REG CLI Primary Care Provider: Tory Liu of Exam: 11/30/21Sex: F Admission Date: 11/30/21 : 1985 Age: 36 APPROVED REPORT EXAM: Comprehensive 2D, Doppler, and color-flow Echocardiogram Patient Location: Out-Patient [place] Operator: Ida Lopez RDCS (AE) Indications: Lightheaded, Palpitations Other Information Study Quality: Adequate Conclusion Normal left ventricular wall thickness and chamber size. Estimated ejection fraction is 55 to 60%. Wall motion is normal Normal right ventricular size and systolic function Both atria are normal in size There is no structural or hemodynamically significant valvular disease Normal estimated right ventricular systolic pressure, 24 mmHg Pulmonary Function Summary: Pulmonary Function Test PATIENT NAME: Ruby HinkleIT #: [id number] ADMITTING PROVIDER: Marline Awan M.D. PRIMARY CARE PROVIDER:TORY LIU DO DATE OF ADMIT: 04/08/21 : 1985 Date of service: 05/04/21 Time of Service: 15:02 Pulmonary Function Test Result Requesting Provider Lv Indications: Reactive airways disease Interpretation Spirometry: There is no airflow limitation. There is a significant decline in FEV1 with administration of methacholine (24%) Impression Positive methacholine test with normal baseline spirometry Note: Compared to 04/08/21, the FEV1 and FVC are essentially unchanged Clinical Correlation therefore is recommended. Anesthesia Assessment and Plan Anesthesia History Personal History: No History of Anesthesia Complications Family History: No Family History of Anesthesia Complications Exercise Tolerance Exercise Tolerance: Metabolic Equivalents>4 Pertinent Negatives Pertinent Negatives: No Major Cardiovascular Symptoms or Complaints and No History of CVA/TIA Cardiac & Pulmonary Exam Cardiac Exam: Normal S1/S2 Heart Sounds Pulmonary Exam: Clear Bilateral Breath Sounds Implantable Cardiac Device Does patient have a Pacemaker or an ICD?: No Airway Exam Known Difficult Airway: No Mallampati Class: 3 Mouth Opening: Normal (> 3cm) Thyromental Distance: Greater than 3 cm Neck Range of Motion: Full ROM Neck Circumference: Normal Teeth Condition: Normal Dentition Tooth Numberin. [place] 2. Chip ASA Classification ASA Score: ASA 3 Emergency Case?: No NPO Status NPO Status: NPO Clears >2 hours, Solids >8 hours Status Status: Negative HCG Anesthesia Plan Resuscitation Status: Full Code Anesthesia Technique: General Anesthesia Airway Planned: Natural Airway Monitors Used: Standard Monitors
[2022-05-06 12:09] VITALS: BMI 37.8
--- NOTE | 2022-05-06 12:31 | STOM_PTH ---
PATIENT: Ruby Hinkle LOC: [facility] U#:[id number] AGE/SX: 36/F ROOM: RE05/06/[address]: Andrea Delgadillo MD : 1985 BED: DIS: 05/06/2022 SPEC #: [id number] RECD: 05/06/22 13:13 STATUS: SARWAT RE #: [id number] BERNARD: 05/06/22 12:[address]: Andrea Delgadillo DEPT: Surgical Specimen RECD BY: Andree Martínez ENTERED: 05/06/22 13:14 SP TYPE: STOMACH OTHR DR: Tory Liu DO Tissues: 1 - STOMACH BIOPSY 2 - STOMACH BIOPSY Procedures: GROSS AND MICRO LEVEL 4 Comments: [id number]
[2022-05-06 12:45] VITALS: BP 120/47; PULSE 71; RESP 16; TEMP 36.4; O2SAT 99
[2022-05-06 13:20] VITALS: BP 112/68; PULSE 63; RESP 17; TEMP 36.4; O2SAT 100
--- NOTE | 2022-05-06 13:51 | W.ANESPOSTOP ---
Postoperative Evaluation Date, Time and Location Date Performed: 05/06/22 Time Performed: 13:51 Patient Location: Day Surgery Unit Vital Signs Most Recent Imported Vital Signs: Most Recent Vital Signs Temp Pulse Resp BP Pulse Ox 36.4 C L 71 16 120/47 L 99 05/06/22 13:27 05/06/22 13:27 05/06/22 13:27 05/06/22 13:27 05/06/22 13:27 Pain Score Most Recent Pain Score: Most Recent Pain Score Pain Level 0 05/06/22 13:27 Assessment Mental Status: Awake (Alert & Oriented to Patient Baseline) Airway and Respiratory Function: Patent airway with normal (patient baseline) respiratory exam Cardiovascular Function: Hemodynamically Stable Hydration Status: Adequately Hydrated Nausea & Vomiting: No Nausea or Vomiting Pain: Pt. Denies Any Pain Peripheral Nerve Block: Patient did not receive a nerve block Postoperative Comments:: Seen earlier today. Appropriate for discharge. Questions answered.
== END 2022-05-06 13:40 | disposition home or self-care (01) ==
LOC: SUR 09:38
PROVIDERS: PCP Student in an Organized Health Care Education/Training Program; Visit Provider Surgery
PROC: 0DJ68ZZ Inspection of Stomach, Via Natural or Artificial Opening Endoscopic (ICD-10-PCS; CPT 43235; principal; 2022-05-06 10:00)
DX: K21.00 Gastro-esophageal reflux disease with esophagitis, without bleeding (principal)
CPT/HCPCS: 43239; 81025; 88305

== ENCOUNTER 2022-05-13 02:19 | Outpatient (CLI) | payer BC, SELFPAY ==
[2022-05-13 17:35] LABS: Anion Gap 8.5 mmol/L (3-11); BUN 15 mg/dL (7-18); CO2 27.5 mmol/L (21.0-32.0); CREATININE 0.6 mg/dL (0.55-1.02); Calculated LDL 89 mg/dL (<100); Chloride 105 mmol/L (98-107); Cholesterol 157 mg/dL (<200); Estimated GFR 119.97 (mL/min/1.73m2); Glucose 82 mg/dL (74-106); HDL Cholesterol 55 mg/dL (40-60); Potassium 3.7 mmol/L (3.5-5.1); Sodium 141 mmol/L (136-145); TSH (W/Ref FT4) 2.13 uIU/mL (0.36-3.74); Triglyceride 68 mg/dL (<150)
[2022-05-13 17:49] LABS: Vitamin D 25 Total 29.3 ng/mL (30-100)
== END 2022-05-13 02:20 | disposition home or self-care (01) ==
LOC: LBO 02:19
PROVIDERS: PCP Student in an Organized Health Care Education/Training Program; Visit Provider Student in an Organized Health Care Education/Training Program
DX: R00.0 Tachycardia, unspecified (principal); R06.02 Shortness of breath; E55.9 Vitamin D deficiency, unspecified; F32.9 Major depressive disorder, single episode, unspecified; R79.89 Other specified abnormal findings of blood chemistry
CPT/HCPCS: 36415; 80048; 80061; 82306; 84443

== ENCOUNTER 2022-11-07 11:33 | Emergency (ER) | payer BC, SELFPAY ==
[2022-11-07 11:45] VITALS: BP 130/87; PULSE 62; RESP 20; TEMP 36.8; O2SAT 100
--- NOTE | 2022-11-07 13:00 | DI.MRI_ITS ---
Exam(s) MR BRAIN WO EXAM: MR BRAIN WO CLINICAL HISTORY: headache, left eye vision distubance TECHNIQUE: Multiplanar multisequence MRI of the brain was performed. COMPARISON: No exams were available for comparison FINDINGS: VENTRICLES AND EXTRA AXIAL SPACES: Normal in size and morphology for the patient's age. MIDLINE SHIFT: None. CEREBRAL PARENCHYMA: No focus of restricted diffusion to suggest acute infarct. No space-occupying le robbie identified. HEMORRHAGE: None. BRAINSTEM/CEREBELLUM: Normal. CALVARIUM: Normal. VISUALIZED PARANASAL SINUSES/MASTOIDS:Clear. HOPI OF [place]: Normal flow void. PITUITARY GLAND: Unremarkable. OTHER FINDINGS: None. IMPRESSION: 1. Unremarkable MRI of the brain. 2. Findings were discussed with the emergency department at 4:30 p.m. on 11/07/2022. DATA REPOSITORY:
[2022-11-07 13:49] LABS: Absolute Basophil Count 0.02 10^3/uL (0.0-0.2); Absolute Eosinophil Count 0.14 10^3/uL (0.0-0.7); Absolute Lymphocyte Count 1.86 10^3/uL (1.2-3.4); Absolute Monocyte Count 0.38 10^3/uL (0.1-0.8); Absolute Neutrophil Count 4.04 10^3/uL (1.2-6.7); Basophils % 0.3; Eosinophils % 2.2; HGB 12.8 g/dL (11.2-15.7); Lymphocytes % 28.9; MCH 26.5 pg (27.0-33.0); MCV 83 fL (80-95); MPV 8.7 fL (8.0-11.0); Monocytes % 5.9; Neutrophils % 62.7; Platelet Count 282 10^3/uL (130-400); RBC 4.83 10^6/uL (3.93-5.22); RDW 12.7 % (11.7-14.6); RDW-SD 38.4 fL; WBC 6.44 10^3/uL (4.4-10.8)
[2022-11-07 14:04] LABS: ALT 24 U/L (14-59); AST 18 U/L (15-37); Albumin 3.9 g/dL (3.4-5.0); Alkaline Phosphatase 71 U/L (46-116); Anion Gap 6.4 mmol/L (3-11); BUN 15 mg/dL (7-18); Bilirubin, Total 0.4 mg/dL (0.2-1.0); CO2 27.6 mmol/L (21.0-32.0); CREATININE 0.7 mg/dL (0.55-1.02); Calcium 8.9 mg/dL (8.5-10.1); Chloride 110 mmol/L (98-107); Estimated GFR 114.88 (mL/min/1.73m2); Glucose 97 mg/dL (74-106); Sodium 144 mmol/L (136-145); Total Protein 8.2 g/dL (6.4-8.2)
[2022-11-07] MEDS: Normal Saline 50 ML ×2 (14:04)
[2022-11-07] MEDS: Prochlorperazine 10 MG/2 ML VIAL IVP (14:04)
[2022-11-07] MEDS: diphenhydrAMINE 50 MG/ML VIAL 25 MG IVP (14:05)
[2022-11-07] MEDS: Ketorolac 30 MG/ML VIAL IVP (14:05)
[2022-11-07] MEDS: Lactated Ringers 500 ML IV (14:52)
[2022-11-07 15:05] VITALS: BP 114/78; PULSE 62; RESP 18; TEMP 36.4; O2SAT 92
--- NOTE | 2022-11-07 16:32 | W.ED.GENAD ---
Discharge Plan Disposition Patient Disposition: Home Condition: Stable Discharge Details Clinical Impression: Headache, Alteration in vision Primary Care Provider: Tory Liu ED Provider: Mateusz Jack Home Meds and New Rx's Prescriptions: Continued multivitamin Tablet 1 tab PO DAILY fluticasone propionate 50 mcg/actuation spray,suspension 2 spray intranasal DAILY Rx Instructions: administer into each nostril Magic Mouthwash 15 ml PO Q4H PRN Qty: 600 0RF Rx Instructions: Trial for mouth soreness, swish/spit cholecalciferol (vitamin D3) 25 mcg (1,000 unit) capsule 25 mcg PO DAILY Qty: 90 1RF Rx Instructions: Continue daily after 8 weeks of high-dose Rx. escitalopram oxalate 20 mg tablet 40 mg PO .COMPLEX MDD 40 Qty: 180 3RF Rx Instructions: 40mg montelukast [Singulair] 10 mg tablet 10 mg PO DAILY Qty: 90 3RF levalbuterol tartrate [Xopenex HFA] 45 mcg/actuation HFA aerosol inhaler 2 inh inhalation Q6H PRN (Reason: shortness of breath or wheezing) Qty: 15 1RF Rx Instructions: continue as albuterol poorly tolerated budesonide-formoterol [Symbicort] 160-4.5 mcg/actuation HFA aerosol inhaler 2 puff inhalation BID Qty: 10.2 12RF omeprazole 20 mg capsule,delayed release(DR/EC) 20 mg PO DAILY Rx Instructions: Trial, start with daily use. sumatriptan succinate 50 mg tablet 50 mg PO PRN PRN Patient Comments: TAKE 1 TABLET BY MOUTH NEEDED FOR MIGRAINE No Action propranolol 60 mg capsule,extended release 24 hr 60 mg PO DAILY Discharge Instructions Instructions: General Headache (ED) Additional Instructions: Please contact your primary care physician to arrange follow-up. Please follow-up with neurology. Call today to arrange timely follow-up. Return to the ER immediately for any worsening or new concerning symptoms. Referrals: Tory Liu DO [Primary Care Provider] - Discharge Data Discharge Date/Time-TO BE ENTERED AT DEPARTURE: 11/07/22 16:53 Medical Decision Making 37-year-old female with history of headaches, here with headache over the past 4 days with associated nausea and no mild alteration in left eye vision today that has improved. Considered CVA versus mass versus complex migraine. MRI of the brain was obtained stat and interpreted by radiology:IMPRESSION: 1. Unremarkable MRI of the brain. 2. Findings were discussed with the emergency department at 4:30 p.m. on 11/07/2022. Plan for discharge with outpatient follow-up with neurology. All results were discussed with the patient. Disposition decision was made weighing the risks and benefits of hospitalization versus outpatient treatment, the risk for further decompensation, and the patient's wishes. The patient was stable and requested discharge. Prior to discharge, my usual and customary return precautions were reviewed with the patient - this included follow-up instructions and reason to return to the emergency department if condition worsens, does not improve as expected, or other new concerns arise. Lab Data Lab results reviewed: Yes I reviewed the patient's lab results. Labs: Laboratory Tests Range/Units 11/07/22 11/07/22 13:40 13:40 WBC (4.4-10.8) 10^3/uL 6.44 RBC (3.93-5.22) 10^6/uL 4.83 Hgb (11.2-15.7) g/dL 12.8 Hct (36.0-46.0) % 40.0 MCV (80-95) fL 83 MCH (27.0-33.0) pg 26.5 L MCHC (32.0-36.0) % 32.0 RDW (11.7-14.6) % 12.7 Plt Count (130-400) 10^3/uL 282 MPV (8.0-11.0) fL 8.7 Immature Gran % 0.0 Neutrophils % 62.7 Lymphocytes % 28.9 Monocytes % 5.9 Eosinophils % 2.2 Basophils % 0.3 Nucleated RBC % (0.0-0.3) % 0.0 Absolute Neutrophils (1.2-6.7) 10^3/uL 4.04 Absolute Lymphocytes (1.2-3.4) 10^3/uL 1.86 Absolute Monocytes (0.1-0.8) 10^3/uL 0.38 Absolute Eosinophils (0.0-0.7) 10^3/uL 0.14 Absolute Basophils (0.0-0.2) 10^3/uL 0.02 Sodium (136-145) mmol/L 144 Potassium (3.5-5.1) mmol/L 4.0 Chloride (98-107) mmol/L 110 H Carbon Dioxide (21.0-32.0) mmol/L 27.6 Anion Gap (3-11) mmol/L 6.4 BUN (7-18) mg/dL 15 Creatinine (0.55-1.02) mg/dL 0.7 Est GFR (CKD-EPI 2020) (mL/min/1.73m2) 114.88 Glucose (74-106) mg/dL 97 Calcium (8.5-10.1) mg/dL 8.9 Total Bilirubin (0.2-1.0) mg/dL 0.4 AST (15-37) U/L 18 ALT (14-59) U/L 24 Alkaline Phosphatase (46-116) U/L 71 Total Protein (6.4-8.2) g/dL 8.2 Albumin (3.4-5.0) g/dL 3.9 HPI General Mode of arrival: ambulatory. Date/Time Provider Initiated Documentation: 11/07/22 12:47. Limitations to Documentation: no limitations. Information obtained by: patient. HPI Narrative: 37-year-old female presents with chief complaint of headache. Patient notes history of headache. She has had headache over the past 4 days localized to frontal/temporal bilaterally. She had some associated nausea. Patient states she took sumatriptan and had mild relief but symptoms persistent today concerned about change in her vision. She notes some blurred vision with the left eye that is mild. She has no associated eye pain. No fever. No neck stiffness or pain. Related Data Home Medications Medication Instructions Recorded Confirmed multivitamin 1 tab PO DAILY 09/17/20 11/07/22 cholecalciferol (vitamin D3) 25 25 mcg PO DAILY #90 caps 05/25/21 11/07/22 mcg (1,000 unit) capsule fluticasone propionate 50 2 spray intranasal DAILY 12/14/21 11/07/22 mcg/actuation nasal spray,suspension omeprazole 20 mg capsule,delayed 20 mg PO DAILY 05/06/22 11/07/22 release Magic Mouthwash 15 ml PO Q4H PRN mouth pain #600 mL 07/12/22 11/07/22 budesonide-formoterol HFA 160 2 puff inhalation BID #10.2 grams 10/16/22 11/07/22 mcg-4.5 mcg/actuation aerosol inhaler (Symbicort) escitalopram oxalate 20 mg tablet 40 mg PO .COMPLEX #180 tabs 10/25/22 11/07/22 levalbuterol tartrate 45 2 inh inhalation Q6H PRN shortness 10/25/22 11/07/22 mcg/actuation aerosol inhaler of breath or wheezing #15 grams (Xopenex HFA) montelukast 10 mg tablet 10 mg PO DAILY #90 tabs 10/25/22 11/07/22 (Singulair) sumatriptan succinate 50 mg tablet 50 mg PO PRN PRN 11/07/22 11/07/22 propranolol 60 mg capsule,24 60 mg PO DAILY 11/15/22 hr,extended release Previous Rx's Medication Instructions Recorded cholecalciferol (vitamin D3) 25 25 mcg PO DAILY #90 caps 05/25/21 mcg (1,000 unit) capsule Magic Mouthwash 15 ml PO Q4H PRN mouth pain #600 mL 07/12/22 budesonide-formoterol HFA 160 2 puff inhalation BID #10.2 grams 10/16/22 mcg-4.5 mcg/actuation aerosol inhaler (Symbicort) escitalopram oxalate 20 mg tablet 40 mg PO .COMPLEX #180 tabs 10/25/22 levalbuterol tartrate 45 2 inh inhalation Q6H PRN shortness 10/25/22 mcg/actuation aerosol inhaler of breath or wheezing #15 grams (Xopenex HFA) montelukast 10 mg tablet 10 mg PO DAILY #90 tabs 10/25/22 (Singulair) Allergies Allergy/AdvReac Type Severity Reaction Status Date / Time cefaclor [From [facility]] Allergy Severe Hives Verified 10/25/22 16:54 General Stated Complaint: Headache CHULA: 3 Review of Systems Constitutional Constitutional: Denies fever(s) and Reports headache(s) ENT Ears, Nose, Mouth, and Throat: Reports headache(s) and Denies disequilibrium Musculoskeletal Musculoskeletal: Denies tingling Neurologic Neurologic: Reports as per HPI, Reports headache(s), Denies lack of coordination, Denies localized weakness, Denies sensory deficit, Denies tingling, Denies paresthesias and Denies disequilibrium PFSH All Active Problems (Updated 11/15/22 @ 08:35 by Nicol Woody, RN) Migraine without aura and without status migrainosus, not intractable (Acute) [place] [facility] [place]id[place] (Acute) [place] [facility] [place] Tachycardia (Acute[place] [facility] [place] Dry mouth and eyes (Acute) [place]27/[place] [facility] [place] Headache (Acute) positional per [facility] [place] Alteration in vision (Acute) Asthma (Chronic) Per Pulm 10/2021 (Dr. Nicole). Singulair started. Malnutrition compromising bodily function (Acute) Chronic GERD (Acute) GERD without esophagitis (Acute) Tongue burning sensation (Acute) Orthostatic intolerance (Acute) POTS (postural orthostatic tachycardia syndrome) (Acute) Initially discussed, 04/2021 .. with goal of testing/specialist Dx for possible Tx. Diaphoresis (Chronic) Is this associated with POTS .. Vasovagal syncopes (Acute) [place] [facility] [place] [facility] (POTS NEG? ..but Dx Orthostatic Intolerance) Anxiety (Chronic) Depression (Chronic) Insomnia (Acute) Motion sickness (Acute) also mentioned as continued sensation of moving/driving, after car has stopped Exposure to TB (Acute) Post concussion syndrome (Acute) Loss of peripheral visual field (Acute) Chondromalacia of left patellofemoral joint (Acute) SOB (shortness of breath) on exertion (Acute) Increased pulse rate (Acute) Vocal cord dysfunction (Acute) Per Pul, 10/2021. Sp/Swallow [ ] Hearing difficulty (Acute) Dysphagia (Acute) Incomplete swallowing (lettuce, spinach) as well as phlegm. Hx citrus/spicy with burning ingin tongue. JAYNE (obstructive sleep apnea) (Chronic) CPAP, needing new settings and mouth-piece. Dx: mild, obstructive per 02/2022 notes, but with sleep fragmentation & recomm for [employer]. Regurgitation of food (Acute) Medical History (Updated 11/15/22 @ 08:35 by Nicol Woody, MAMADOU) Hypovitaminosis D Near syncope Post covid-19 condition, unspecified Recurrent dislocation of patella Reflux involving intestinal tract Surgical History History of dental surgery Family History Mother Anxiety Depression Hypertension Sister Anxiety Depression Father Hypertension Social History Smoking/Tobacco Use Status: Never Smoking risk assessment performed?: Yes Alcohol Intake: current Alcohol Intake frequency: a few times a month Drug use: Never Substance use type: does not use Adopted: No Caregiver/Support person: No Foster care: No Household members: none Housing: apartment Do you need help understanding health information?: Rarely 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[employer], [employer] Sexually active: No Do you think of yourself as: Decline to Provide Current gender identity: female Do you feel safe at home: Yes Do you feel safe in your relationship?: Yes Exam Const General: cooperative and no acute distress HENMT Head: normocephalic and atraumatic Mouth: moist mucous membranes Eyes Visual Brown: normal visual brown by confrontation Alignment and Position: alignment normal Periorbital: periorbital findings normal Eyelids: eyelids normal Conjunctivae: conjunctivae normal Sclera: sclerae normal Cornea: corneas normal Pupils: PERRL EOM: EOM intact bilaterally Direct ophthalmoscopy: normal light reflex, no papilledema and fundi normal bilaterally Neck Neck: full ROM, no meningeal signs, trachea midline and supple Resp Auscultation: clear to auscultation bilaterally, no rales, no rhonchi and no wheezes Cardio Rate: regular rate and not tachycardic Rhythm: regular rhythm GI Palpation: soft, not firm, no guarding, no masses, not rigid and nontender Skin General skin exam: no rashes or lesions noted Neuro General: patient alert, patient awake, patient oriented x3 and tone normal Cranial Nerves: CN's II-XI intact bilaterally Cognition: normal cognition Speech: speech normal Gait: normal gait Motor: muscle tone normal throughout and strength 5/5 throughout Sensory Exam: no sensory deficits noted Extrem General: no edema Psych Appearance: grossly normal Mental Status: mental status grossly normal Speech and Movement: speech and movement normal Course Vital Signs Vital signs: Vital Signs Temperature 36.8 C 11/07/22 11:45 Pulse 62 11/07/22 11:45 Respiratory Rate 20 11/07/22 11:45 Blood Pressure 130/87 11/07/22 11:45 Pulse Oximetry 100 11/07/22 11:45 Temperature 36.4 C L 11/07/22 15:05 Temperature Source Oral 11/07/22 15:05 Pulse 62 11/07/22 15:05 Respiratory Rate 18 11/07/22 15:05 Respiratory Effort Normal, Non-Labored 11/07/22 11:50 Blood Pressure 114/78 11/07/22 15:05 Blood Pressure Position Sitting 11/07/22 11:45 Pulse Oximetry 92 11/07/22 15:05 Oxygen Delivery Method Room Air 11/07/22 15:05 Oxygen Flow Rate 0 11/07/22 15:05 Pain Level 4 11/07/22 11:45 Lab/Test Results Lab/Test Results: Laboratory Tests Range/Units 11/07/22 11/07/22 13:40 13:40 WBC (4.4-10.8) 10^3/uL 6.44 RBC (3.93-5.22) 10^6/uL 4.83 Hgb (11.2-15.7) g/dL 12.8 Hct (36.0-46.0) % 40.0 MCV (80-95) fL 83 MCH (27.0-33.0) pg 26.5 L MCHC (32.0-36.0) % 32.0 RDW (11.7-14.6) % 12.7 Plt Count (130-400) 10^3/uL 282 MPV (8.0-11.0) fL 8.7 Immature Gran % 0.0 Neutrophils % 62.7 Lymphocytes % 28.9 Monocytes % 5.9 Eosinophils % 2.2 Basophils % 0.3 Nucleated RBC % (0.0-0.3) % 0.0 Absolute Neutrophils (1.2-6.7) 10^3/uL 4.04 Absolute Lymphocytes (1.2-3.4) 10^3/uL 1.86 Absolute Monocytes (0.1-0.8) 10^3/uL 0.38 Absolute Eosinophils (0.0-0.7) 10^3/uL 0.14 Absolute Basophils (0.0-0.2) 10^3/uL 0.02 Sodium (136-145) mmol/L 144 Potassium (3.5-5.1) mmol/L 4.0 Chloride (98-107) mmol/L 110 H Carbon Dioxide (21.0-32.0) mmol/L 27.6 Anion Gap (3-11) mmol/L 6.4 BUN (7-18) mg/dL 15 Creatinine (0.55-1.02) mg/dL 0.7 Est GFR (CKD-EPI 2020) (mL/min/1.73m2) 114.88 Glucose (74-106) mg/dL 97 Calcium (8.5-10.1) mg/dL 8.9 Total Bilirubin (0.2-1.0) mg/dL 0.4 AST (15-37) U/L 18 ALT (14-59) U/L 24 Alkaline Phosphatase (46-116) U/L 71 Total Protein (6.4-8.2) g/dL 8.2 Albumin (3.4-5.0) g/dL 3.9 POC- Test(urine) Negative
--- NOTE | 2022-11-07 16:43 | NUR.NOTE ---
Nursing Note: Referral given to Care Management to see pts own Neurologist [facility] [place]/ complex headache, visual change, MRI negative today/ within a couple weeks.
[2022-11-07 16:51] VITALS: BP 115/81; PULSE 62; RESP 16; TEMP 36.4; O2SAT 95
--- NOTE | 2022-11-08 08:50 | CMACTNOTE_ITS ---
- If Service Date Differs Date of service: 11/08/22 Time of Service: 08:50 Care Management Activity Note Ruby is seen in the ED for a headache and alteration in vision. At the request of ED provider, LIO coordinates a referral to [facility] [place] [facility] to assist patient in obtaining an appointment. She has [place] of [place] for insurance.
== END 2022-11-07 16:53 | disposition home or self-care (01) ==
PROVIDERS: Emergency Provider Student in an Organized Health Care Education/Training Program; PCP Student in an Organized Health Care Education/Training Program
DX: R51.9 Headache, unspecified (principal); R11.0 Nausea; H53.8 Other visual disturbances
CPT/HCPCS: 80053; 81025; 96361; 96374; 96375; 99284; 70551; 85025; J0780; J1200; J1885

== ENCOUNTER 2022-12-19 04:34 | Outpatient (CLI) | payer BC, SELFPAY ==
[2022-12-21 15:43] LABS: ANA Interpretation Negative (Negative)
[2022-12-23 16:18] LABS: SS-A Antibody 1.5 Units (<20.0); SS-B (La) Ab, IgG 2.5 Units (<20.0); Sm (Smith) Ab, IgG 3.4 Units (<20.0)
== END 2022-12-19 04:35 | disposition home or self-care (01) ==
PROVIDERS: PCP Student in an Organized Health Care Education/Training Program; Visit Provider Psychiatry & Neurology Neurology
DX: R68.2 Dry mouth, unspecified (principal); H04.123 Dry eye syndrome of bilateral lacrimal glands; R51.0 Headache with orthostatic component, not elsewhere classified; R00.0 Tachycardia, unspecified
CPT/HCPCS: 36415; 86038; 86235

== ENCOUNTER → 2023-11-24 12:43 | Outpatient (CLI) | payer BC, SELFPAY ==
--- NOTE | 2023-11-24 08:15 | DI.RAD_ITS ---
Exam(s) XR HEEL RT OS CALCIS EXAM: XR HEEL RT OS CALCIS CLINICAL HISTORY: Inflammatory heel pain, M79.673. TECHNIQUE: 2D digital imaging was performed. Two images were obtained. COMPARISON: No exams were available for comparison FINDINGS: BONES: No acute fracture is present. No bony destructive lesion is seen. There is a small plantar ca lcaneal spur. There is an enthesophyte at the posterior calcaneus. JOINTS: No dislocation present. SOFT TISSUE: Normal. IMPRESSION: Calcaneal spurs. DATA REPOSITORY: RADIATION DOSE DELIVERED:
--- NOTE | 2023-11-24 08:15 | DI.RAD_ITS ---
Exam(s) XR THUMB RT EXAM: XR THUMB RT CLINICAL HISTORY: Pain in thumb joint with rt hand movement, M25.541; atypical mole, D22.9. TECHNIQUE: 2D digital imaging was performed of the right finger. Four views were obtained. PA/AP, oblique, and lateral views were obtained. COMPARISON: No exams were available for comparison FINDINGS: BONES: No acute fracture is present. No bony destructive lesion is seen. JOINTS: No dislocation present. The joint spaces are well maintained. SOFT TISSUE: Normal. IMPRESSION: No evidence of acute fracture, dislocation, or subluxation. DATA REPOSITORY: RADIATION DOSE DELIVERED:
--- NOTE | 2023-11-24 08:15 | DI.RAD_ITS ---
Exam(s) XR HEEL LT OS CALCIS EXAM: XR HEEL LT OS CALCIS CLINICAL HISTORY: Inflammatory heel pain, M79.673. TECHNIQUE: 2D digital imaging was performed. Two images were obtained. COMPARISON: There are no priors for comparison. FINDINGS: BONES: No acute fracture is present. No bony destructive lesion is seen. There is a moderate plantar calcaneal spur. There is an enthesophyte at the posterior calcaneus. JOINTS: No dislocation present. SOFT TISSUE: Normal. IMPRESSION: Calcaneal spurs. DATA REPOSITORY: RADIATION DOSE DELIVERED:
== END ==
PROVIDERS: PCP Student in an Organized Health Care Education/Training Program; Visit Provider Student in an Organized Health Care Education/Training Program
DX: M25.541 Pain in joints of right hand; M79.672 Pain in left foot; M79.671 Pain in right foot
CPT/HCPCS: 73140; 73650

== ENCOUNTER 2023-12-19 20:13 | Outpatient (CLI) | payer BC, SELFPAY ==
[2023-12-19 17:46] LABS: Folate > 20.0 ng/mL (8.6-20.0)
[2023-12-19 17:57] LABS: Vitamin B12 511 pg/mL (193-986)
[2023-12-19 18:34] LABS: Vitamin D 25 Total 27.2 ng/mL (30-100)
[2023-12-25 07:24] LABS: Thiamine (Vitamin B1), WB 189 nmol/L (70-180)
== END 2023-12-19 20:14 | disposition home or self-care (01) ==
LOC: LBO 12-27 20:17
PROVIDERS: PCP Student in an Organized Health Care Education/Training Program; Visit Provider Student in an Organized Health Care Education/Training Program
DX: Z09 Encounter for follow-up examination after completed treatment for conditions other than malignant neoplasm; K90.9 Intestinal malabsorption, unspecified
CPT/HCPCS: 82306; 82607; 82746; 84425; 84446

== ENCOUNTER 2023-12-27 09:57 | Outpatient (CLI) | payer BC, SELFPAY ==
[2023-12-29 13:34] LABS: Vitamin E, Serum 8.5 mg/L (5.5 - 17.0)
== END 2023-12-27 09:58 | disposition home or self-care (01) ==
LOC: LBO 09:57
PROVIDERS: PCP Student in an Organized Health Care Education/Training Program; Visit Provider Student in an Organized Health Care Education/Training Program
DX: E46 Unspecified protein-calorie malnutrition (principal); Z09 Encounter for follow-up examination after completed treatment for conditions other than malignant neoplasm
CPT/HCPCS: 36415; 84446

== ENCOUNTER 2024-03-05 17:48 | Outpatient (REF) | payer BC, SELFPAY ==
[2024-03-05 10:07] LABS: Abs Immature Grans 0.03 10^3/uL (0.0-0.06); Absolute Basophil Count 0.03 10^3/uL (0.0-0.2); Absolute Eosinophil Count 0.17 10^3/uL (0.0-0.7); Absolute Lymphocyte Count 1.53 10^3/uL (1.2-3.4); Absolute Monocyte Count 0.42 10^3/uL (0.1-0.8); Absolute Neutrophil Count 5.77 10^3/uL (1.2-6.7); Basophils % 0.4 %; Eosinophils % 2.1 %; HCT 37.7 % (36.0-46.0); HGB 11.9 g/dL (11.2-15.7); Immature Grans % 0.4 %; Lymphocytes % 19.2 %; MCH 25.9 pg (27.0-33.0); MCHC 31.6 % (32.0-36.0); MCV 82 fL (80-95); MPV 9.4 fL (8.0-11.0); Monocytes % 5.3 %; Neutrophils % 72.6 %; Platelet Count 308 10^3/uL (130-400); RDW 13.6 % (11.7-14.6); RDW-SD 40.2 fL; WBC 7.95 10^3/uL (4.4-10.8)
[2024-03-06 10:04] LABS: IgE 4 IU/mL (<158)
== END 2024-03-05 17:49 | disposition home or self-care (01) ==
LOC: LBN 17:48
PROVIDERS: PCP Student in an Organized Health Care Education/Training Program; Visit Provider Physician Assistant Surgical
DX: J45.909 Unspecified asthma, uncomplicated (principal)
CPT/HCPCS: 82785; 85025

== ENCOUNTER 2024-05-03 14:21 | Outpatient (CLI) | payer OTHER, BC, SELFPAY ==
--- NOTE | 2024-05-03 15:06 | DI.RAD_ITS ---
Exam(s) XR ANKLE LT COMPLETE EXAM: XR ANKLE LT COMPLETE CLINICAL HISTORY: evaluate fx,lt ankle pain, m25.572. TECHNIQUE: 2D digital imaging was performed. COMPARISON: CR XR HEEL LT OS CALCIS from 11/24/2023 FINDINGS: 3 views No evidence of acute fracture or widening the ankle mortise. Talar dome unremarkable. No degenerati ve changes nor osteochondral defects evident. Prominent inferior calcaneal spur is again noted as is an enthesophyte on the posterior calcaneus Achilles insertion site. IMPRESSION: No acute osseous findings in the left ankle nor significant change compared to prior images of 2023. DATA REPOSITORY: RADIATION DOSE DELIVERED:
--- NOTE | 2024-05-03 15:06 | DI.RAD_ITS ---
Exam(s) XR FOOT LT COMPLETE EXAM: XR FOOT LT COMPLETE CLINICAL HISTORY: evaluate fx,lt foot pain,m79.672. TECHNIQUE: 2D digital imaging was performed. COMPARISON: No exams were available for comparison FINDINGS: 3 views No evidence of acute fracture or diastasis of the Lisfranc joint. Bone density normal. No osseous l esions nor erosions. The great toe metatarsophalangeal joint appears unremarkable. No radiopaque fo reign bodies. Prominent inferior calcaneal spur noted as is enthesophyte and posterior calcaneus ins ertion aspect of Achilles tendon. IMPRESSION: No acute osseous findings in the bones of the left foot. DATA REPOSITORY: RADIATION DOSE DELIVERED:
== END 2024-05-03 14:41 ==
PROVIDERS: PCP Student in an Organized Health Care Education/Training Program; Visit Provider Nurse Practitioner Family
DX: M25.572 Pain in left ankle and joints of left foot
CPT/HCPCS: 73610; 73630

== ENCOUNTER 2024-06-25 01:44 | Outpatient (CLI) | payer OTHER, BC, SELFPAY ==
--- NOTE | 2024-06-25 07:30 | DI.RAD_ITS ---
Exam(s) XR FOOT LT COMPLETE EXAM: XR FOOT LT COMPLETE CLINICAL HISTORY: left foot pain,m79.672. TECHNIQUE: 2D digital imaging was performed. COMPARISON: CR XR FOOT LT COMPLETE from 05/03/2024 FINDINGS: 3 views No evidence of fracture or diastasis of the Lisfranc joint. Minimal degenerative changes in the grea t toe metatarsophalangeal joint. No pes planus. Prominent inferior calcaneal spur is noted as well as is an enthesophyte on the posterior calcaneus insertion site of the Achilles tendon. No significant osseous lesions. No radiopaque foreign bodies. IMPRESSION: No acute osseous findings in the foot. DATA REPOSITORY: RADIATION DOSE DELIVERED:
== END 2024-06-25 02:04 ==
LOC: DI 01:44
PROVIDERS: PCP Student in an Organized Health Care Education/Training Program; Visit Provider Podiatrist
DX: M79.672 Pain in left foot (principal)
CPT/HCPCS: 73630

== ENCOUNTER 2024-10-15 02:17 | Outpatient (CLI) | payer BC, SELFPAY ==
[2024-10-15 07:32] LABS: Abs Immature Grans 0.02 10^3/uL (0.0-0.06); Absolute Basophil Count 0.03 10^3/uL (0.0-0.2); Absolute Eosinophil Count 0.17 10^3/uL (0.0-0.7); Absolute Lymphocyte Count 2.09 10^3/uL (1.2-3.4); Absolute Monocyte Count 0.53 10^3/uL (0.1-0.8); Absolute Neutrophil Count 5.67 10^3/uL (1.2-6.7); Basophils % 0.4 %; HCT 41.7 % (36.0-46.0); HGB 13.4 g/dL (11.2-15.7); Immature Grans % 0.2 %; Lymphocytes % 24.6 %; MCH 28.6 pg (27.0-33.0); MCHC 32.1 % (32.0-36.0); MCV 89 fL (80-95); MPV 8.8 fL (8.0-11.0); Monocytes % 6.2 %; Neutrophils % 66.6 %; Platelet Count 282 10^3/uL (130-400); RBC 4.68 10^6/uL (3.93-5.22); RDW 12.6 % (11.7-14.6); RDW-SD 41.1 fL; WBC 8.51 10^3/uL (4.4-10.8)
[2024-10-15 08:26] LABS: ALT 20 U/L (14-59); AST 13 U/L (15-37); Albumin 3.7 g/dL (3.4-5.0); Alkaline Phosphatase 83 U/L (46-116); Anion Gap 7.4 mmol/L (3-11); BUN 12 mg/dL (7-18); Bilirubin, Direct 0.2 mg/dL (0.0-0.2); Bilirubin, Total 0.8 mg/dL (0.2-1.0); CO2 31.6 mmol/L (21.0-32.0); CREATININE 0.7 mg/dL (0.55-1.02); Calcium 9.2 mg/dL (8.5-10.1); Chloride 103 mmol/L (98-107); Estimated GFR 113.46 (mL/min/1.73m2); Glucose 100 mg/dL (74-106); Potassium 4.3 mmol/L (3.5-5.1); Sodium 142 mmol/L (136-145); TSH (W/Ref FT4) 2.72 uIU/mL (0.36-3.74); Total Protein 7.7 g/dL (6.4-8.2)
[2024-10-15 08:59] LABS: Vitamin D 25 Total 33 ng/mL (30-100)
[2024-10-15 18:04] LABS: Estradiol 18 pg/mL (See Note)
[2024-10-17 11:51] LABS: HIV 1 RNA Qualitative Undetected Copys/mL (Undetected)
== END 2024-10-15 02:18 | disposition home or self-care (01) ==
LOC: LBO 02:17
PROVIDERS: PCP Nurse Practitioner Family; Referring Provider Nurse Practitioner Family; Visit Provider Nurse Practitioner Family
DX: R61 Generalized hyperhidrosis (principal); E55.9 Vitamin D deficiency, unspecified
CPT/HCPCS: 36415; 80053; 80076; 82306; 87536; 82670; 84443; 85025; 86140

== ENCOUNTER 2025-02-22 03:53 | Emergency (ER) | payer BC, SELFPAY ==
[2025-02-22 03:56] VITALS: BP 150/82; PULSE 91; RESP 18; TEMP 36.2; O2SAT 95
--- NOTE | 2025-02-22 04:15 | RT.EKG_ITS ---
APPROVED REPORT Exam: Resting ECG Reason for Exam: right chest pain Patient Location: E HR:76 bpm ECG Measurements Heart Rate 76 AXIS [place] 153 P 43 QRSd 92 QRS 2 QT 377 T 11 QTc 425 Conclusion Sinus rhythm...normal P axis, V-rate 60- 99 Low voltage, precordial leads...precordial leads <1.0mV Physician: No Stemi
[2025-02-22 04:22] LABS: Glucose Negative (Negative)
[2025-02-22 04:28] LABS: C & S Indicated? No; WBC 0-2 HPF (0-5)
--- NOTE | 2025-02-22 04:28 | ED.GENADUL_ITS ---
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 [Botox] intradermal [id number] 75 mg tablet,disintegrating 75 mg PO DAILY PRN (Reason: migraine headache) Qty: 90 3RF Rx Instructions: as a single dose propranolol 80 mg capsule,extended release 24 hr 80 mg PO DAILY Qty: 90 3RF omeprazole 20 mg capsule,delayed release(DR/EC) 20 mg PO BID Qty: 180 3RF Rx Instructions: Increased dose levalbuterol tartrate [Xopenex HFA] 45 mcg/actuation HFA aerosol inhaler 2 inh inhalation Q6H PRN (Reason: shortness of breath or wheezing) Qty: 15 6RF Rx Instructions: continue as albuterol poorly tolerated magnesium oxide 400 mg (241.3 mg magnesium) tablet 400 mg PO DAILY Patient Comments: FROM [facility] [place] 03/02/23 NOTE. TAKE BETWEEN 400-600MG DAILY (MAG OX OR MAG GLYCINATE OK).HE Excedrin Migraine 250-250-65 mg tablet 1 tab PO ONCE PRN (Reason: headache) riboflavin (vitamin B2) 400 mg tablet 400 mg PO DAILY PRN Patient Comments: FROM [facility] – [place] 03/02/23 NOTE. (CAN BE TAKEN IN DIVIDED DOSES.) HE levalbuterol HCl 0.63 mg/3 mL solution for nebulization 0.63 mg inhalation ONCE Qty: 90 12RF Dupixent Pen 300 mg/2 mL pen injector 300 mg subcut Q2W Qty: 4 11RF fluticasone furoate-vilanterol [Breo Ellipta] 200-25 mcg/dose blister with device 1 inh inhalation DAILY Qty: 60 12RF budesonide-formoterol [Symbicort] 160-4.5 mcg/actuation HFA aerosol inhaler 2 puff inhalation BID Qty: 10.2 12RF prednisone 20 mg tablet 40 mg PO DAILY Qty: 10 0RF Rx Instructions: Take 2 tablets once a day for 5 days. montelukast 10 mg tablet See Rx Instructions .ROUTE .COMPLEX Qty: 90 3RF Dose Instruction: TAKE 1 TABLET BY MOUTH DAILY Rx Instructions: TAKE 1 TABLET BY MOUTH DAILY escitalopram oxalate 20 mg tablet See Rx Instructions .ROUTE .COMPLEX Qty: 180 0RF Dose Instruction: TAKE 2 TABLETS BY MOUTH DAILY Rx Instructions: TAKE 2 TABLETS BY MOUTH DAILY Discharge Instructions Instructions: Chest pain Additional Instructions: At this time your workup has returned and shows no evidence of significant blood clot, pneumonia, rib fracture, heart attack or other significant abnormality. As we discussed together, I am concerned that there may be a component of a muscular irritation that is causing your current symptoms. Please use a heating pad, take Tylenol Motrin as needed. If you notice any worsening of your symptoms, or any new symptoms such as vomiting, diarrhea, fever, chills, shortness of breath, chest pain, numbness, weakness, or fainting , please return immediately to the emergency department for reevaluation. Please follow up with your primary care provider as soon as possible for reassessment and reevaluation. As always, it was a pleasure participating in your medical care today. Referrals: Judy Argueta APRN [Primary Care Provider, Family Practice] [facility] General Date/Time Provider Initiated Documentation: 02/22/25 04:04 . [facility] Narrative: This is a 39-year-old female with a past medical history of migraines, asthma, depression, who presents today for evaluation of chest pain and shortness of breath. Patient just got back from a long 2-day driving trip from [place], she noticed that during that time she had some mild swelling of her legs bilaterally with some achiness. And then last night she developed sudden right upper back chest pain. It is sharp in nature, worse whenever she takes of breath. Worse when she moves. She took her inhaler but this did not improve her symptoms. She did take Tylenol but this did not improve her symptoms. She denies cough or hemoptysis. She denies fever or chills. She denies vomiting or diarrhea. No other complaints at this time. She is not on any control. No history of pulmonary embolism. She does have a second-degree relatives did have any history of a PE though. No other complaints at this time. Related Data Home Medications ?Medication ?Instructions ?Recorded ?Confirmed fluticasone propionate 50 2 spray intranasal DAILY 01/2802/22/25 mcg/actuation nasal spray,suspension compression stockings #2 ea 02/25/23 10/08/24 magnesium oxide 400 mg (241.3 mg 400 mg PO DAILY 03/0302/22/25 magnesium) tablet liefuuy-bgqyvtksjbqws-sipidzpj 250 1 tab PO ONCE PRN h eadache 12/13/23 02/22/25 mg-250 mg-65 mg tablet (Excedrin Migraine) levalbuterol tartrate 45 2 inh inhalation Q6H PRN manolo rtness 02/29/24 02/22/25 mcg/actuation aerosol inhaler of breath or wheezing #1 5 grams (Xopenex HFA) omeprazole 20 mg capsule,delayed 20 mg PO BID #180 cap s 02/29/24 02/22/25 release propranolol 80 mg capsule,24 80 mg PO DAILY #90 caps 0 02/29/24 02/22/25 hr,extended release rimegepant 75 mg disintegrating 75 mg PO DAILY PRN mckenna jocelyne 02/29/24 02/22/25 tablet (Nurtec ODT) headache #90 tabs riboflavin (vitamin B2) 400 mg 400 mg PO DAILY PRN 02/22/25 tablet levalbuterol HCl 0.63 mg/3 mL 0.63 mg (3 mL) inhalatio n ONCE #90 07/31/24 02/22/25 solution for nebulization mL dupilumab 300 mg/2 mL subcutaneous 300 mg (2 mL) subcu t Q2W #4 mL 08/27/24 02/22/25 pen injector ([employer]) onabotulinumtoxinA [Botox] intradermal [id number] Migrai ne 10/02/24 10/23/24 prevention fluticasone furoate 200 1 inh inhalation DAILY #60 e a 11/26/24 02/22/25 mcg-vilanterol 25 mcg/dose inhalation powder (Breo Ellipta) Held on 02/22/25. Instructions: Pt Stopped/Never Started budesonide-formoterol HFA 160 2 puff inhalation BID #1 0.2 grams 12/11/24 02/22/25 mcg-4.5 mcg/actuation aerosol inhaler (Symbicort) prednisone 20 mg tablet 40 mg (2 x 20 mg) PO DAILY # 10 tabs 12/11/24 02/22/25 Held on 02/22/25. Instructions: Pt Stopped/Never Started montelukast 10 mg tablet See Rx Instructions .Route 0 01/10/25 02/22/25 .COMPLEX #90 tabs escitalopram oxalate 20 mg tablet See Rx Instructions .Route 01/22/25 02/22/25 .COMPLEX #180 tabs Previous Rx's ?Medication ?Instructions ?Recorded compression stockings #2 ea 02/25/23 levalbuterol tartrate 45 2 inh inhalation Q6H PRN manolo rtness 02/29/24 mcg/actuation aerosol inhaler of breath or wheezing #1 5 grams (Xopenex HFA) omeprazole 20 mg capsule,delayed 20 mg PO BID #180 cap s 02/29/24 release propranolol 80 mg capsule,24 80 mg PO DAILY #90 caps 0 02/29/24 hr,extended release rimegepant 75 mg disintegrating 75 mg PO DAILY PRN mckenna jocelyne 02/29/24 tablet (Nurtec ODT) headache #90 tabs levalbuterol HCl 0.63 mg/3 mL 0.63 mg (3 mL) inhalatio n ONCE #90 07/31/24 solution for nebulization mL dupilumab 300 mg/2 mL subcutaneous 300 mg (2 mL) subcu t Q2W #4 mL 08/27/24 pen injector (Dupixent) fluticasone furoate 200 1 inh inhalation DAILY #60 e a 11/26/24 mcg-vilanterol 25 mcg/dose inhalation powder (Breo Ellipta) Held on 02/22/25. Instructions: Pt Stopped/Never Started budesonide-formoterol HFA 160 2 puff inhalation BID #1 0.2 grams 12/11/24 mcg-4.5 mcg/actuation aerosol inhaler (Symbicort) prednisone 20 mg tablet 40 mg (2 x 20 mg) PO DAILY # 10 tabs 12/11/24 Held on 02/22/25. Instructions: Pt Stopped/Never Started montelukast 10 mg tablet See Rx Instructions .Route 0 01/10/25 .COMPLEX #90 tabs escitalopram oxalate 20 mg tablet See Rx Instructions .Route 01/22/25 .COMPLEX #180 tabs Allergies Allergy/AdvReac Type Severity Reaction Status Date / Time cefaclor (From Ceclor) Allergy Severe Hives Verified 02/22/25 04:01 tiotropium (From Spiriva Allergy Difficulty Verified 02/22/25 04:01 with HandiHaler) breathing diphenhydramine (From AdvReac Intermediate perpetual Verified 02/22/25 04:01 Benadryl) movement fremanezumab-vfrm (From AdvReac Intermediate Itching Verified 02/22/25 04:01 Ajovy Autoinjector) sulfamethoxazole (From AdvReac Intermediate Itching Verified 02/22/25 04:01 Sulfamethoxazole-Trimethoprim) trimethoprim (From AdvReac Intermediate Itching Verified 02/22/25 04:01 Sulfamethoxazole-Trimethoprim) General Stated Complaint: Nk/Back Pain CHULA: 4 Exam Narrative Exam Narrative: 1.Const: Well-nourished, Well-developed, appearing stated age 2.Eyes: PERRL, no conjunctival injection, and symmetrical lids. 3.ENT: Atraumatic external nose and ears. Moist MM. Neck: Symmetric, trachea midline, No thyromegaly. 4.CVS: +S1/S2, Peripheral pulses 2+ and equal in all extremities. Brisk capillary refill in all extremities. 5.RESP: Unlabored respiratory effort. Clear to auscultation bilaterally. No wheezes rales or rhonchi 6.GI: Soft, Nontender/Nondistended, No hepatosplenomegaly. No guarding or rebound. 7.MSK: Normocephalic/Atraumatic, Extremities w/o deformity or ttp No cyanosis or clubbing, Normal movement of all extremities. Mild pitting edema bilaterally at trace. Mild calf achiness bilaterally. No discolorations. Normal pulses. 8.Skin: Warm, Dry. No rashes or lesions. 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 Sensation grossly intact, no focal neurologic deficits. 10.Psych: (AAO) x3. Appropriate mood and affect Course Vital Signs Vital signs: Vital Signs Temperature 36.2 C L 02/22/25 03:56 Pulse 91 H 02/22/25 03:56 Respiratory Rate 18 02/22/25 03:56 Blood Pressure 150/82 H 02/22/25 03:56 Pulse Oximetry 95 02/22/25 03:56 Temperature 36.2 C L 02/22/25 03:56 Temperature Source Oral 02/22/25 03:56 Pulse 91 H 02/22/25 03:56 Respiratory Rate 18 02/22/25 03:56 Blood Pressure 150/82 H 02/22/25 03:56 Pulse Oximetry 95 02/22/25 03:56 Oxygen Delivery Method Room Air 02/22/25 03:56 Oxygen Flow Rate 0 02/22/25 03:56 Lab/Test Results Lab/Test Results: Laboratory Tests Range/Units 02/22/25 04:12 Urine Color (Yellow) Yellow Urine Clarity (Clear) Clear Urine pH (5-8) 6.0 Ur Specific [place] (1.005-1.025) >= 1.030 H Urine Protein (Neg-Trace) mg/dL Negative Urine Ketones (Negative) mg/dL Negative Urine Blood (Negative) Moderate H Urine Nitrite (Negative) Negative Urine Bilirubin (Negative) Negative Urine Urobilinogen (Up to 0.2) mg/dL 0.2 Ur Leukocyte Esterase (Negative) Negative Urine Glucose (Negative) mg/dL Negative Medical Decision Making This is a 39-year-old female with a past medical history of migraines, asthma, depression, who presents today for evaluation of chest pain and shortness of breath. Patient just got back from a long 2-day driving trip from [place], she noticed that during that time she had some mild swelling of her legs bilaterally with some achiness. And then last night she developed sudden right upper back chest pain. It is sharp in nature, worse whenever she takes of breath. Worse when she moves. She took her inhaler but this did not improve her symptoms. She did take Tylenol but this did not improve her symptoms. She denies cough or hemoptysis. She denies fever or chills. She denies vomiting or diarrhea. No other complaints at this time. She is not on any control. No history of pulmonary embolism. She does have a second-degree relatives did have any history of a PE though. No other complaints at this time. Exam demonstrates a well-appearing female, clear lung sounds, minimal achiness in her calves, normal pulses. No other physical exam abnormalities of significance. Bedside limited ultrasound shows good lung sliding bilaterally. No signs of pneumothorax. Differential is high for potential PE, musculoskeletal etiology. She has no pain at McBurney's point, and negative Enriquez sign. No evidence to suggest cholecystitis. Will get CT imaging, and treat with Toradol for pain, monitor closely and reassess. Additionally the patient is currently on her menstrual cycle. 6:46 AM On reassessment the patient has notable improvement of her symptoms. She still does have some mild achiness in the right back and chest, but this is improved compared to prior. She feels that she can breathe easier. Laboratory workup shows no white count bandemia or left shift. No significant laboratory abnormalities. Normal serial troponins. Normal EKG, CTA was ordered and shows no evidence of PE, pneumonia, or other significant abnormalities. With the improvement of the patient's symptoms, and the lack of concerning abnormality noted I do feel that the patient is stable for discharge. Symptoms clinically inconsistent with acute life-threatening etiology at this time. Suspect musculoskeletal etiology. Discussed red flags for which to return. I have extensively reviewed the treatment plan and discharge instructions with the patient. I have addressed all patient concerns at this time. The patient was made aware of what symptoms to monitor for that would warrant a return to the emergency department. Discussed the plan with the patient, they demonstrate verbal understanding and agreement with our assessment and plan at this time. The documentation in this chart was dictated using [employer] dictation software. Please excuse any dictation errors. FINDINGS: Pulmonary arteries: No pulmonary embolus appreciated. Aorta: No thoracic aortic aneurysm seen. Lungs: Dependent changes are present in the lungs. Pleural spaces: No pleural effusion. Heart: No pericardial effusion. Lymph nodes: No acute abnormality seen. Bones/joints: No acute pertinent abnormality seen. Soft tissues: No acute pertinent abnormality seen. IMPRESSION: No acute findings to explain reported symptoms. Thank you for allowing us to participate in the care of your patient. Dictated and Authenticated by: Tasha Denson MD 02/22/2025 6:27 AM Eastern Time ([place] & [place]) [facility] All Active Problems (Updated 02/22/25 @ 06:46 by Francisco J Rivera DO) Chest wall discomfort (Acute) Acute right-sided back pain (Acute) Generalized hyperhidrosis (Acute) Sprain of tarsometatarsal joint of left foot (Acute) Achilles tendon contracture, bilateral (Acute) Plantar fasciitis, bilateral (Acute) Hx of migraines (Acute) [facility] [place] Neuro note 06/20/24 Botox injections done, (q12 weeks).HE Hearing deficit (Acute) Calcaneal spur of both feet (Acute) Inflammatory heel pain (Acute) Pain of left heel (Acute) thought to be possible splinter? Pain in thumb joint with movement of right hand (Acute) Atypical mole (Acute) Pseudopapilledema of both optic discs (Acute) COVID (Acute ~06/16/23) Chronic migraine w/o aura w/o status migrainosus, not intractable (Acute) [facility] – [place] NOTE 03/02/23.HE Positional headache (Acute) [facility] [place] NOTE 03/02/23.HE Diaphoresis (Chronic) Is this associated with POTS .. Intractable episodic headache (Acute) [facility] ED, 11/07/22 .. [facility] [place] Neurology note (11/24), requested MRI w/ contrast .. but only Visual changes (Acute) 11/24/22 [facility] [place] Neurology note Migraine without aura and without status migrainosus, not intractable (Acute) 10/27/22 [facility] [place] Neurology Hyperhidrosis (Acute) 10/27/22 [facility] [place] Neurology Tachycardia (Acute) 10/27/22 [facility] [place] Neurology Dry mouth and eyes (Acute) 10/27/22 [facility] [place] Neurology Asthma (Chronic) Per Pulm 10/2021 (Dr. Nicole). Singulair started. Malnutrition compromising bodily function (Acute) Chronic GERD (Acute) GERD without esophagitis (Acute) Tongue burning sensation (Acute) Hx braces, indentation/lesions w/o active pain/infection per exam, 03/10/23 Orthostatic intolerance (Acute) per [facility] [place] Neuro (testing did not support true POTS) POTS (postural orthostatic tachycardia syndrome) (Acute) Initially discussed, 04/2021 .. with goal of testing/specialist Dx for possible Tx. Vasovagal syncopes (Acute) per [facility] [place] EP Cardiology (POTS NEG? ..but Dx Orthostatic Intolerance) Anxiety (Chronic) Depression (Chronic) Insomnia (Acute) Motion sickness (Acute) also mentioned as continued sensation of moving/driving, after car has stopped Exposure to TB (Acute) Post concussion syndrome (Acute) Loss of peripheral visual field (Acute) Chondromalacia of left patellofemoral joint (Acute) SOB (shortness of breath) on exertion (Acute) Increased pulse rate (Acute) Vocal cord dysfunction (Acute) Per Pulm, 10/2021. Sp/Swallow [ ] JAYNE (obstructive sleep apnea) (Chronic) CPAP, needing new settings and mouth-piece. Dx: mild, obstructive per 02/2022 notes, but with sleep fragmentation & recomm for ORAL APPLIANCE. Medical History Regurgitation of food Reflux involving intestinal tract Dysphagia Incomplete swallowing (lettuce, spinach) as well as phlegm. Hx citrus/spicy with burning ingin tongue. Hearing difficulty Post covid-19 condition, unspecified Hypovitaminosis D Near syncope Recurrent dislocation of patella Surgical History S/P skin biopsy [facility] [place] Derm progress note 04/09/24 L forearm punch bx. result: Compound, predominately intradermal melanocytic nevus, present at the peripheral specimen edge. reassured of benign nature. no acute intervention needed at this time.HE History of dental surgery Family History Mother Anxiety Depression Hypertension Sister Anxiety Depression Father Hypertension Social History Smoking/Tobacco Use Status: Never Smoking risk assessment performed?: Yes Alcohol Intake: current Alcohol Intake frequency: a few times a month Drug use: Never Substance use type: does not use Adopted: No Caregiver/Support person: No Foster care: No Household members: none Housing: apartment Do you need help understanding health information?: Rarely current occupation: [employer], [employer] Sexually active: No Do you think of yourself as: Decline to Provide Current gender identity: female Do you feel safe at home: Yes Do you feel safe in your relationship?: Yes POCUS Exam (ED) Limited Cardiac Exam DATE OF EXAM: 02/22/25 TIME OF EXAM: 04:33 Limited Thoracic Lung Exam DATE OF EXAM: 02/22/25 TIME OF EXAM: 04:33 PROVIDER THAT PERFORMED THE STUDY: Francisco J Rivera IS THIS A REPEAT EXAM DURING THIS ENCOUNTER: No REASON FOR EXAM: Chest pain VISUALIZED STRUCTURES: right anterior and left anterior PERTINENT FINDINGS/IMPRESSION: No apparent abnormalities Exam complete
[2025-02-22 04:39] LABS: Abs Immature Grans 0.01 10^3/uL (0.0-0.06); BE (Venous) 2 mmol/L (-2-3); HCO3 (Venous) 27 mmol/L (23-28); HCT 39.2 % (36.0-46.0); HGB 12.7 g/dL (11.2-15.7); Immature Grans % 0.2 %; MCH 28.3 pg (27.0-33.0); MCHC 32.4 % (32.0-36.0); MCV 88 fL (80-95); MPV 9.3 fL (8.0-11.0); O2 Sat (Venous) 55 %; Platelet Count 259 10^3/uL (130-400); RBC 4.48 10^6/uL (3.93-5.22); RDW 12.3 % (11.7-14.6); RDW-SD 39.5 fL; TCO2 (Venous) 25 mmol/L (24-29); WBC 6.31 10^3/uL (4.4-10.8); pCO2 (Venous) 46 mmHg (41-51); pO2 (Venous) 30 mmHg
[2025-02-22 05:05] LABS: INR 1.0 (0.9-1.1); PTT Activated 26.7 sec (20.6-30.2); Prothrombin Time 9.9 sec (9.1-11.1)
[2025-02-22 05:06] LABS: ALT 25 U/L (14-59); AST 17 U/L (15-37); Albumin 3.6 g/dL (3.4-5.0); Alkaline Phosphatase 69 U/L (46-116); Anion Gap 7.9 mmol/L (3-11); BUN 12 mg/dL (7-18); Bilirubin, Total 0.5 mg/dL (0.2-1.0); CO2 29.1 mmol/L (21.0-32.0); Calcium 8.8 mg/dL (8.5-10.1); Chloride 103 mmol/L (98-107); Estimated GFR 117.75 (mL/min/1.73m2); Glucose 102 mg/dL (74-106); NT-proBNP 28 pg/mL (<300); Potassium 3.7 mmol/L (3.5-5.1); Sodium 140 mmol/L (136-145); Total Protein 7.2 g/dL (6.4-8.2); Troponin I 5 ng/L (<or=51)
[2025-02-22] MEDS: Normal Saline 500 ML IV (05:26)
[2025-02-22] MEDS: Omnipaque 350 MG/ML 100 ML BTL IJ (05:26)
[2025-02-22] MEDS: Normal Saline - Diluent 50 ML VIAL IJ (05:26)
[2025-02-22] MEDS: Ketorolac 15 MG/ML VIAL IVP (05:27)
--- NOTE | 2025-02-22 05:27 | DI.CT_ITS ---
Exam(s) CT CHEST PE CTA EXAM: CT CHEST PE CTA CLINICAL HISTORY: right CP and SOB after long trip. TECHNIQUE: Imaging Protocol: Axial CT angiography was performed with multi- slice acquisition and multi-planar reconstructions as well as axial, coronal and sagittal MIP reconstructions. Computer aided detection (CAD) was utilized. CONTRAST MATERIAL: Intravenous: Omnipaque 350 Contrast volume:90 ml COMPARISON: CR XR CHEST 2V PA LATERAL from 05/06/2021 FINDINGS: Pulmonary Arteries: No evidence of filling defect to suggest pulmonary emboli. Mediastinum and Janel: No dominant adenopathy or fluid collection. Pulmonary parenchyma: No consolidation or dominant measurable mass. Pleura: No effusion or pneumothorax. Heart: The heart is not dilated. No coronary artery calcifications are seen. Aorta: Thoracic aorta non-dilated. No dissection. No atherosclerotic changes. Upper abdomen: No acute findings. Bones: Unremarkable for age. Tubes, Catheters, and Lines: None Soft tissues: Unremarkable. IMPRESSION: No evidence of pulmonary embolism or other acute abnormality. The preliminary [facility] report was reviewed. RADIATION DOSE DELIVERED: Total DLP DATA REPOSITORY: All CT scans at this facility are submitted to the National Radiology Data Registry (NRDR) Dose Index Registry (DIR) with the [employer] (ACR). RADIATION OPTIMIZATION: All CT scans at this facility use at least one of these dose optimization techniques: automated exposure control; mA and/or kV adjustment per patient size (includes targeted exams where dose is matched to clinical indication); or iterative reconstruction.
[2025-02-22 06:06] LABS: Troponin I 7 ng/L (<or=51)
--- NOTE | 2025-02-22 06:28 | DI.[facility]_ITS ---
PROCEDURE INFORMATION: Exam: CTA Chest With Contrast Exam date and time: 02/22/2025 4:59 AM Age: 39 years old Clinical indication: Shortness of breath; Right-sided; Right chest pain and SOB after long trip TECHNIQUE: Imaging protocol: Computed tomographic angiography of the chest with contrast. Exam focused on the arteries. 3D rendering (Not supervised by radiologist): MIP and/or 3D reconstructed images were created by the technologist. Radiation optimization: All CT scans at this facility use at least one of these dose optimization techniques: automated exposure control; mA and/or kV adjustment per patient size (includes targeted exams where dose is matched to clinical indication); or iterative reconstruction. Contrast material: [id number]; Contrast volume: 90 ml; Contrast route: INTRAVENOUS (IV); COMPARISON: No relevant prior studies are available for comparison. FINDINGS: Pulmonary arteries: No pulmonary embolus appreciated. Aorta: No thoracic aortic aneurysm seen. Lungs: Dependent changes are present in the lungs. Pleural spaces: No pleural effusion. Heart: No pericardial effusion. Lymph nodes: No acute abnormality seen. Bones/joints: No acute pertinent abnormality seen. Soft tissues: No acute pertinent abnormality seen. IMPRESSION: No acute findings to explain reported symptoms. Dictated and Authenticated by: Tasha Denson MD. Orderin Miguel Marx MD
[2025-02-22 06:48] VITALS: BP 116/70; PULSE 58; O2SAT 98
== END 2025-02-22 06:48 | disposition home or self-care (01) ==
PROVIDERS: Emergency Provider Student in an Organized Health Care Education/Training Program; PCP Nurse Practitioner Family
DX: M54.9 Dorsalgia, unspecified (principal); R07.89 Other chest pain
CPT/HCPCS: 99285; 99284; 81025; 96374; 71275; 76604; 80053; 82805; 93005; 96361; 81003; 81015; 83880; 84484; 85025; 85610; 85730; 93010; J1885; J3490

== ENCOUNTER 2025-06-22 13:50 | Emergency (ER) | payer BC, SELFPAY ==
[2025-06-22 13:56] VITALS: BP 124/84; PULSE 64; RESP 16; TEMP 37; O2SAT 95
--- NOTE | 2025-06-22 14:15 | DI.CT_ITS ---
Exam(s) CT ABDOMEN PELVIS WO EXAM: CT ABDOMEN PELVIS WO CLINICAL HISTORY: left flank pain, eval for stone. TECHNIQUE: Imaging Protocol: Axial computed tomography images with coronal and sagittal reformatted images were created and reviewed. Oral: no COMPARISON: No exams were available for comparison FINDINGS: Lung Bases: No acute findings. Liver: Normal density. No suspicious mass. Gallbladder and biliary tract: No radiodense calculus or biliary dilation. Pancreas: Normal density. No abnormal calcifications or inflammatory process. Spleen: Normal. Kidneys: Normal size, contour and axis. No radiodense stones. No obstructive uropathy. No suspicious masses seen. Adrenal glands: No masses seen. Lymph nodes: Within normal limits. Vasculature: Abdominal aorta non-dilated. Soft tissues: Unremarkable. Bladder: Nearly empty. No wall thickening. No mass or calculi. Bowel: No obstruction or bowel wall thickening. Peritoneal cavity: No ascites. No focal collection. No mesenteric inflammatory response. Reproductive organs: Calcified uterine fibroid. Bones: Unremarkable for age. IMPRESSION: No acute abnormality in the abdomen or pelvis. No evidence of urinary tract calculi or hydronephrosis. The preliminary [facility] report was reviewed. RADIATION DOSE DELIVERED: Total DLP DATA REPOSITORY: All CT scans at this facility are submitted to the National Radiology Data Registry (NRDR) Dose Index Registry (DIR) with the [employer] (ACR). RADIATION OPTIMIZATION: All CT scans at this facility use at least one of these dose optimization techniques: automated exposure control; mA and/or kV adjustment per patient size (includes targeted exams where dose is matched to clinical indication); or iterative reconstruction.
[2025-06-22 14:18] LABS: Glucose Negative (Negative)
--- NOTE | 2025-06-22 14:25 | ED.GENADUL_ITS ---
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 [Botox] intradermal [id number] escitalopram oxalate 20 mg tablet See Rx Instructions .ROUTE .COMPLEX Qty: 180 2RF Dose Instruction: TAKE 2 TABLETS BY MOUTH DAILY Rx Instructions: TAKE 2 TABLETS BY MOUTH DAILY levalbuterol tartrate [Xopenex HFA] 45 mcg/actuation HFA aerosol inhaler 2 inh inhalation Q6H PRN (Reason: shortness of breath or wheezing) Qty: 15 6RF Rx Instructions: continue as albuterol poorly tolerated omeprazole 20 mg capsule,delayed release(DR/EC) 20 mg PO BID Qty: 180 3RF Rx Instructions: Increased dose propranolol 80 mg capsule,extended release 24 hr 80 mg PO DAILY Qty: 90 3RF Nurtec ODT 75 mg tablet,disintegrating 75 mg PO DAILY PRN (Reason: migraine headache) Qty: 90 3RF Rx Instructions: as a single dose prochlorperazine maleate [Compazine] 5 mg tablet 5 mg PO BID PRN (Reason: nausea and vomiting) Qty: 30 1RF azithromycin 250 mg tablet See Rx Instructions PO .COMPLEX Qty: 6 0RF Rx Instructions: For 250 mg dose pack: take 500 mg today (day 1), then 250 mg for 4 days (days 2-5) PO fluticasone propionate 220 mcg/actuation HFA aerosol inhaler 2 puff inhalation BID Qty: 12 12RF magnesium oxide 400 mg (241.3 mg magnesium) tablet 400 mg PO DAILY Patient Comments: FROM [facility] 03/02/[place] NOTE. TAKE BETWEEN 400-600MG DAILY (MAG OX OR MAG GLYCINATE OK).HE Excedrin Migraine 250-250-65 mg tablet 1 tab PO ONCE PRN (Reason: headache) riboflavin (vitamin B2) 400 mg tablet 400 mg PO DAILY PRN Patient Comments: FROM [facility] [place] 03/02/23 NOTE. (CAN BE TAKEN IN DIVIDED DOSES.) HE levalbuterol HCl 0.63 mg/3 mL solution for nebulization 0.63 mg inhalation ONCE Qty: 90 12RF Dupixent Pen 300 mg/2 mL pen injector 300 mg subcut Q2W Qty: 4 11RF fluticasone furoate-vilanterol [Breo Ellipta] 200-25 mcg/dose blister with device 1 inh inhalation DAILY Qty: 60 12RF budesonide-formoterol [Symbicort] 160-4.5 mcg/actuation HFA aerosol inhaler 2 puff inhalation BID Qty: 10.2 12RF prednisone 20 mg tablet 40 mg PO DAILY Qty: 10 0RF Rx Instructions: Take 2 tablets once a day for 5 days. montelukast 10 mg tablet See Rx Instructions .ROUTE .COMPLEX Qty: 90 3RF Dose Instruction: TAKE 1 TABLET BY MOUTH DAILY Rx Instructions: TAKE 1 TABLET BY MOUTH DAILY Discharge Instructions Instructions: Uterine fibroids Additional Instructions: At this time you have evidence of a large calcified uterine fibroid. I am concerned this may be a source of your current symptoms and pain. Please take Tylenol or Motrin as needed for pain. Please follow-up with obstetrics gynecology for reassessment and further discussion of potential treatment options for the fibroid for long-term management. If you notice persistent hematuria even after treatment of the fibroid, you may need further assessment with urology in the future not emergently. If you notice any worsening of your symptoms, or any new symptoms such as vomiting, diarrhea, fever, chills, shortness of breath, chest pain, numbness, weakness, or fainting , please return immediately to the emergency department for reevaluation. Please follow up with your primary care provider as soon as possible for reassessment and reevaluation. As always, it was a pleasure participating in your medical care today. Stand Alone Forms: Portal Information Referrals: Judy Argueta APRN [Primary Care Provider, Family Practice] [facility] General Date/Time Provider Initiated Documentation: 06/22/25 13:51 . HPI Narrative: This is a pleasant 39-year-old female with a past medical history of asthma, GERD, POTS, chronic migraines, who presents today for evaluation of flank pain. Patient states that she has had left-sided flank pain for the last 2 to 3 weeks. It initially started as a sharp stabbing sensation in her left flank associated with hematuria. Eventually the pain began to come and go with time and the hematuria resolved. However over the last few days the pain has worsened, and the hematuria has returned. She denies any excessive vaginal discharge or vaginal bleeding at this time. She denies any vomiting. She denies any fever. Pain is described as sharp and stabbing in the left flank radiating down towards the groin. She denies any other complaints. She has not taken any NSAID therapy today. No prior surgeries. No other modifying factors. Related Data Home Medications ?Medication ?Instructions ?Recorded ?Confirmed fluticasone propionate 50 2 spray intranasal DAILY 01/2806/22/25 mcg/actuation nasal spray,suspension compression stockings #2 ea 02/25/23 04/08/25 magnesium oxide 400 mg (241.3 mg 400 mg PO DAILY 03/0306/22/25 magnesium) tablet hpqolks-vnaaaxluvjrsj-lphmvxcr 250 1 tab PO ONCE PRN h eadache 12/13/23 06/22/25 mg-250 mg-65 mg tablet (Excedrin Migraine) riboflavin (vitamin B2) 400 mg 400 mg PO DAILY PRN 06/22/25 tablet levalbuterol HCl 0.63 mg/3 mL 0.63 mg (3 mL) inhalatio n ONCE #90 07/31/24 06/22/25 solution for nebulization mL dupilumab 300 mg/2 mL subcutaneous 300 mg (2 mL) subcu t Q2W #4 mL 08/27/24 06/22/25 pen injector ([employer]) onabotulinumtoxinA [Botox] intradermal [id number] Migrai ne 10/02/24 04/08/25 prevention fluticasone furoate 200 1 inh inhalation DAILY #60 e a 11/26/24 06/22/25 mcg-vilanterol 25 mcg/dose inhalation powder (Breo Ellipta) Held on 02/22/25. Instructions: Pt Stopped/Never Started budesonide-formoterol HFA 160 2 puff inhalation BID #1 0.2 grams 12/11/24 06/22/25 mcg-4.5 mcg/actuation aerosol inhaler (Symbicort) Held on 06/22/25. Instructions: Prescription Finished prednisone 20 mg tablet 40 mg (2 x 20 mg) PO DAILY # 10 tabs 12/11/24 06/22/25 Held on 02/22/25. Instructions: Pt Stopped/Never Started montelukast 10 mg tablet See Rx Instructions .Route 0 01/10/25 06/22/25 .COMPLEX #90 tabs escitalopram oxalate 20 mg tablet See Rx Instructions .Route 03/04/25 06/22/25 .COMPLEX #180 tabs levalbuterol tartrate 45 2 inh inhalation Q6H PRN manolo rtness 03/04/25 06/22/25 mcg/actuation aerosol inhaler of breath or wheezing #1 5 grams (Xopenex HFA) omeprazole 20 mg capsule,delayed 20 mg PO BID #180 cap s 03/04/25 06/22/25 release prochlorperazine maleate 5 mg 5 mg PO BID PRN nausea a nd 03/04/25 06/22/25 tablet (Compazine) vomiting #30 tabs Held on 06/22/25. Instructions: Changed by Provider propranolol 80 mg capsule,24 80 mg PO DAILY #90 caps 0 03/04/25 06/22/25 hr,extended release rimegepant 75 mg disintegrating 75 mg PO DAILY PRN mckenna jocelyne 03/04/25 06/22/25 tablet (Nurtec ODT) headache #90 tabs azithromycin 250 mg tablet See Rx Instructions PO .COM PLEX #6 04/03/25 06/22/25 Held on 06/22/25. tabs Instructions: Prescription Finished fluticasone propionate 220 2 puff inhalation BID #12 g cassie 05/13/25 06/22/25 mcg/actuation HFA aerosol inhaler Previous Rx's ?Medication ?Instructions ?Recorded compression stockings #2 ea 02/25/23 levalbuterol HCl 0.63 mg/3 mL 0.63 mg (3 mL) inhalatio n ONCE #90 07/31/24 solution for nebulization mL dupilumab 300 mg/2 mL subcutaneous 300 mg (2 mL) subcu t Q2W #4 mL 08/27/24 pen injector (Dupixent) fluticasone furoate 200 1 inh inhalation DAILY #60 e a 11/26/24 mcg-vilanterol 25 mcg/dose inhalation powder (Breo Ellipta) Held on 02/22/25. Instructions: Pt Stopped/Never Started budesonide-formoterol HFA 160 2 puff inhalation BID #1 0.2 grams 12/11/24 mcg-4.5 mcg/actuation aerosol inhaler (Symbicort) Held on 06/22/25. Instructions: Prescription Finished prednisone 20 mg tablet 40 mg (2 x 20 mg) PO DAILY # 10 tabs 12/11/24 Held on 02/22/25. Instructions: Pt Stopped/Never Started montelukast 10 mg tablet See Rx Instructions .Route 0 01/10/25 .COMPLEX #90 tabs escitalopram oxalate 20 mg tablet See Rx Instructions .Route 03/04/25 .COMPLEX #180 tabs levalbuterol tartrate 45 2 inh inhalation Q6H PRN manolo rtness 03/04/25 mcg/actuation aerosol inhaler of breath or wheezing #1 5 grams (Xopenex HFA) omeprazole 20 mg capsule,delayed 20 mg PO BID #180 cap s 03/04/25 release prochlorperazine maleate 5 mg 5 mg PO BID PRN nausea a nd 03/04/25 tablet (Compazine) vomiting #30 tabs Held on 06/22/25. Instructions: Changed by Provider propranolol 80 mg capsule,24 80 mg PO DAILY #90 caps 0 03/04/25 hr,extended release rimegepant 75 mg disintegrating 75 mg PO DAILY PRN mckenna jocelyne 03/04/25 tablet (Nurtec ODT) headache #90 tabs azithromycin 250 mg tablet See Rx Instructions PO .COM PLEX #6 04/03/25 Held on 06/22/25. tabs Instructions: Prescription Finished fluticasone propionate 220 2 puff inhalation BID #12 g cassie 05/13/25 mcg/actuation HFA aerosol inhaler Allergies Allergy/AdvReac Type Severity Reaction Status Date / Time cefaclor (From Ceclor) Allergy Severe Hives Verified 06/22/25 13:59 tiotropium (From Spiriva Allergy Difficulty Verified 06/22/25 13:59 with HandiHaler) breathing diphenhydramine (From AdvReac Intermediate perpetual Verified 06/22/25 13:59 Benadryl) movement fremanezumab-vfrm (From AdvReac Intermediate Itching Verified 06/22/25 13:59 Ajovy Autoinjector) sulfamethoxazole (From AdvReac Intermediate Itching Verified 06/22/25 13:59 Sulfamethoxazole-Trimethoprim) trimethoprim (From AdvReac Intermediate Itching Verified 06/22/25 13:59 Sulfamethoxazole-Trimethoprim) General Stated Complaint: FlankPain CHULA: 3 Exam Narrative Exam Narrative: 1.Const: Well-nourished, Well-developed, appearing stated age 2.Eyes: PERRL, no conjunctival injection, and symmetrical lids. 3.ENT: Atraumatic external nose and ears. Moist MM. Neck: Symmetric, trachea midline, No thyromegaly. 4.CVS: +S1/S2, Peripheral pulses 2+ and equal in all extremities. Brisk capillary refill in all extremities. 5.RESP: Unlabored respiratory effort. Clear to auscultation bilaterally. No wheezes rales or rhonchi 6.GI: Soft, nondistended. Mild left-sided CVA tenderness, mild left-sided abdominal pain tenderness on palpation. No significant/severe right-sided tenderness or pain. Mild suprapubic achiness. 7.MSK: Normocephalic/Atraumatic, Extremities w/o deformity or ttp No cyanosis or clubbing, Normal movement of all extremities 8.Skin: Warm, Dry. No rashes or lesions. 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 Sensation grossly intact, no focal neurologic deficits. 10.Psych: (AAO) x3. Appropriate mood and affect Course Vital Signs Vital signs: Vital Signs Temperature 37.0 C 06/22/25 13:56 Pulse 64 06/22/25 13:56 Respiratory Rate 16 06/22/25 13:56 Blood Pressure 124/84 06/22/25 13:56 Pulse Oximetry 95 06/22/25 13:56 Temperature 37.0 C 06/22/25 13:56 Temperature Source Oral 06/22/25 13:56 Pulse 64 06/22/25 13:56 Respiratory Rate 16 06/22/25 13:56 Blood Pressure 124/84 06/22/25 13:56 Pulse Oximetry 95 06/22/25 13:56 Oxygen Delivery Method Room Air 06/22/25 13:56 Oxygen Flow Rate 0 06/22/25 13:56 Lab/Test Results Lab/Test Results: Laboratory Tests Range/Units 06/22/25 13:58 Urine Color (Yellow) Yellow Urine Clarity (Clear) Sl Cloudy Urine pH (5-8) 6.5 Ur Specific [place] (1.005-1.025) 1.020 Urine Protein (Neg-Trace) mg/dL Negative Urine Ketones (Negative) mg/dL Negative Urine Blood (Negative) Moderate H Urine Nitrite (Negative) Negative Urine Bilirubin (Negative) Negative Urine Urobilinogen (Up to 0.2) mg/dL 0.2 Ur Leukocyte Esterase (Negative) Trace H Urine RBC (0-2) HPF 10-20 H Urine WBC (0-5) HPF 3-5 Ur Epithelial Cells (Negative) HPF Moderate Urine Crystals (Negative) HPF Negative Urine Bacteria (Negative) HPF Many Urine Casts (Negative) LPF Negative Urine Mucus (Negative) Trace Ur Culture Indicated? No/Sq. Contamination Urine Glucose (Negative) mg/dL Negative POC- Test(urine) Negative Medical Decision Making This is a pleasant 39-year-old female with a past medical history of asthma, GERD, POTS, chronic migraines, who presents today for evaluation of flank pain. Patient states that she has had left-sided flank pain for the last 2 to 3 weeks. It initially started as a sharp stabbing sensation in her left flank associated with hematuria. Eventually the pain began to come and go with time and the hematuria resolved. However over the last few days the pain has worsened, and the hematuria has returned. She denies any excessive vaginal discharge or vaginal bleeding at this time. She denies any vomiting. She denies any fever. Pain is described as sharp and stabbing in the left flank radiating down towards the groin. She denies any other complaints. She has not taken any NSAID therapy today. No prior surgeries. No other modifying factors. Exam demonstrates mild left flank and CVA tenderness and left abdominal tenderness. Vital signs stable. No severe right-sided tenderness. No guarding or rebound. Differential is high for urolithiasis, UTI/pyelo-, diverticulitis, less likely ovarian cyst. We will rehydrate, treat with IV NSAID therapy of Toradol, get CT imaging to rule out these processes, monitor closely and reassess. 4:[address] scan shows evidence of a large calcified uterine fibroid, no other acute abnormality. No urolithiasis, no diverticulitis, no large ovarian cyst per radiology. No white count bandemia or left shift. Electrolytes normal, renal function normal. Urinalysis shows hematuria but no evidence of infection. Symptoms are likely secondary to uterine fibroid. Interstitial cystitis notably less likely. Will place referral for outpatient OB follow-up, will recommend NSAID therapy. On reassessment patient is feeling much better. Patient will be discharged home. No evidence of emergent component at this point. Pain well- controlled, patient is hemodynamically stable. Discussed red flags for which to return. Patient will follow-up with gynecology on a outpatient basis. I have extensively reviewed the treatment plan and discharge instructions with the patient. I have addressed all patient concerns at this time. The patient was made aware of what symptoms to monitor for that would warrant a return to the emergency department. Discussed the plan with the patient, they demonstrate verbal understanding and agreement with our assessment and plan at this time. The documentation in this chart was dictated using [employer] dictation software. Please excuse any dictation errors. FINDINGS: Liver: Normal. No mass. Gallbladder and biliary ducts: Normal. No calcified stones. No ductal dilation. Pancreas: Normal. No ductal dilation. Spleen: Normal. No splenomegaly. Adrenal glands: Normal. No mass. Kidneys and ureters: Normal. No hydronephrosis. Stomach and bowel: Unremarkable. No obstruction. No mucosal thickening. Appendix: The appendix is well seen, within normal limits. Intraperitoneal space: Unremarkable. No free air. No significant fluid collection. Vasculature: Unremarkable. No abdominal aortic aneurysm. Lymph nodes: Unremarkable. No enlarged lymph nodes. Urinary bladder: The bladder is not well distended. Reproductive: Peripherally calcified uterine fibroid noted. Bones/joints: Unremarkable. No acute fracture. Soft tissues: Unremarkable. IMPRESSION: No acute abnormality seen to account for symptoms. Thank you for allowing us to participate in the care of your patient. Dictated and Authenticated by: Amanda Lloyd MD 06/22/2025 3:45 PM Eastern Time ([place] & [place]) [facility] All Active Problems (Updated 06/22/25 @ 16:11 by Francisco J Rivera DO) Hematuria (Acute) Fibroid, uterine (Acute) Right knee pain (Acute) Generalized hyperhidrosis (Acute) Sprain of tarsometatarsal joint of left foot (Acute) Achilles tendon contracture, bilateral (Acute) Plantar fasciitis, bilateral (Acute) Hx of migraines (Acute) [facility] Neuro note 06/20/24 Botox injections done, (q12 weeks).HE Hearing deficit (Acute) Calcaneal spur of both feet (Acute) Inflammatory heel pain (Acute) Pain of left heel (Acute) thought to be possible splinter? Pain in thumb joint with movement of right hand (Acute) Atypical mole (Acute) Pseudopapilledema of both optic discs (Acute) COVID (Acute ~06/16/23) Chronic migraine w/o aura w/o status migrainosus, not intractable (Acute) [facility] [place] NOTE 03/02/23.HE Positional headache (Acute) [facility] NOTE 03/02/23.HE Diaphoresis (Chronic) Is this associated with POTS .. Intractable episodic headache (Acute) [facility] ED, 11/07/22 .. [facility] [place] Neurology note (11/24), requested MRI w/ contrast .. but only Visual changes (Acute) 11/24/22 [facility] [place] Neurology note Migraine without aura and without status migrainosus, not intractable (Acute) 10/27/22 [facility] [place] Neurology Hyperhidrosis (Acute) 10/27/22 [facility] [place] [facility]rology Tachycardia (Acute) 10/27/22 [facility] [place] Neurology Dry mouth and eyes (Acute) 10/27/22 [facility] [place] Neurology Asthma (Chronic) Per Pulm 10/2021 (Dr. Nicole). Singulair started. Malnutrition compromising bodily function (Acute) Chronic GERD (Acute) GERD without esophagitis (Acute) Tongue burning sensation (Acute) Hx braces, indentation/lesions w/o active pain/infection per exam, 03/10/23 Orthostatic intolerance (Acute) per [facility] Neuro (testing did not support true POTS) POTS (postural orthostatic tachycardia syndrome) (Acute) Initially discussed, 04/2021 .. with goal of testing/specialist Dx for possible Tx. Vasovagal syncopes (Acute) per [facility] EP Cardiology (POTS NEG? ..but Dx Orthostatic Intolerance) Anxiety (Chronic) Depression (Chronic) Insomnia (Acute) Motion sickness (Acute) also mentioned as continued sensation of moving/driving, after car has stopped Exposure to TB (Acute) Post concussion syndrome (Acute) Loss of peripheral visual field (Acute) Chondromalacia of left patellofemoral joint (Acute) SOB (shortness of breath) on exertion (Acute) Increased pulse rate (Acute) Vocal cord dysfunction (Acute ~10/06/25) Per Pulm, 10/2021. Sp/Swallow [ ] JAYNE (obstructive sleep apnea) (Chronic) CPAP, needing new settings and mouth-piece. Dx: mild, obstructive per 02/2022 notes, but with sleep fragmentation & recomm for ORAL APPLIANCE. Medical History Regurgitation of food Reflux involving intestinal tract Dysphagia Incomplete swallowing (lettuce, spinach) as well as phlegm. Hx citrus/spicy with burning ingin tongue. Hearing difficulty Post covid-19 condition, unspecified Hypovitaminosis D Near syncope Recurrent dislocation of patella Surgical History S/P skin biopsy [facility] [place] Derm progress note 04/09/24 L forearm punch bx. result: Compound, predominately intradermal melanocytic nevus, present at the peripheral specimen edge. reassured of benign nature. 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
[2025-06-22] MEDS: Ketorolac 15 MG/ML VIAL IVP (14:49)
[2025-06-22] MEDS: Normal Saline 1,000 ML 1000 ML IV (14:50)
[2025-06-22 14:58] LABS: Abs Immature Grans 0.02 10^3/uL (0.0-0.06); HCT 38.6 % (36.0-46.0); HGB 12.6 g/dL (11.2-15.7); Immature Grans % 0.3 %; MCH 28.3 pg (27.0-33.0); MCHC 32.6 % (32.0-36.0); MCV 87 fL (80-95); MPV 8.7 fL (8.0-11.0); Platelet Count 279 10^3/uL (130-400); RBC 4.45 10^6/uL (3.93-5.22); RDW 12.3 % (11.7-14.6); RDW-SD 38.9 fL; WBC 6.46 10^3/uL (4.4-10.8)
[2025-06-22 15:16] LABS: ALT 12 U/L (10-49); AST 15 U/L (<34); Albumin 4.3 g/dL (3.2-5.0); Alkaline Phosphatase 63 U/L (46-116); Anion Gap 6.9 mmol/L (3-11); BUN 9 mg/dL (9-23); Bilirubin, Total 0.5 mg/dL (0.2-1.2); CO2 28.1 mmol/L (20.0-31.0); Calcium 8.3 mg/dL (8.3-10.6); Chloride 107 mmol/L (98-107); Glucose 85 mg/dL (74-106); Potassium 3.7 mmol/L (3.5-5.1); Sodium 142 mmol/L (136-145); Total Protein 7.1 g/dL (5.7-8.2)
--- NOTE | 2025-06-22 15:45 | DI.VRAD_ITS ---
PROCEDURE INFORMATION: Exam: CT Abdomen And Pelvis Without Contrast Exam date and time: 06/22/2025 3:29 PM Age: 39 years old Clinical indication: Other: Left flank pain eval for stone TECHNIQUE: Imaging protocol: Computed tomography of the abdomen and pelvis without contrast. Radiation optimization: All CT scans at this facility use at least one of these dose optimization techniques: automated exposure control; mA and/or kV adjustment per patient size (includes targeted exams where dose is matched to clinical indication); or iterative reconstruction. COMPARISON: CT CHEST PE CTA 02/22/2025 4:59 AM FINDINGS: Liver: Normal. No mass. Gallbladder and biliary ducts: Normal. No calcified stones. No ductal dilation. Pancreas: Normal. No ductal dilation. Spleen: Normal. No splenomegaly. Adrenal glands: Normal. No mass. Kidneys and ureters: Normal. No hydronephrosis. Stomach and bowel: Unremarkable. No obstruction. No mucosal thickening. Appendix: The appendix is well seen, within normal limits. Intraperitoneal space: Unremarkable. No free air. No significant fluid collection. Vasculature: Unremarkable. No abdominal aortic aneurysm. Lymph nodes: Unremarkable. No enlarged lymph nodes. Urinary bladder: The bladder is not well distended. Reproductive: Peripherally calcified uterine fibroid noted. Bones/joints: Unremarkable. No acute fracture. Soft tissues: Unremarkable. IMPRESSION: No acute abnormality seen to account for symptoms. Dictated and Authenticated by: Amanda Lloyd MD. Orderin Miguel Marx MD
[2025-06-22 16:26] VITALS: BP 127/66; PULSE 56; RESP 16; O2SAT 99
== END 2025-06-22 16:35 | disposition home or self-care (01) ==
PROVIDERS: Nurse Practitioner Family; Emergency Provider Student in an Organized Health Care Education/Training Program; PCP Nurse Practitioner Family
DX: D25.9 Leiomyoma of uterus, unspecified (principal); R31.9 Hematuria, unspecified
CPT/HCPCS: 80053; 81025; 96374; 99284; 74176; 81003; 81015; 85025; J1885